=== PATIENT | male | born 1975 | race Caucasian/White ===

== ENCOUNTER → 2016-05-24 | Outpatient (CLI) | payer BC ==
--- NOTE | 2016-05-24 10:05 | XR ---
EXAMINATION TYPE: XR foot complete LT DATE OF EXAM: 05/24/2016 9:45 AM COMPARISON: NONE HISTORY: Pain jumped out of truck TECHNIQUE: 3 view left foot FINDINGS: Plantar and Achilles tendon calcaneal heel spurs are present. No acute fractures are eviden t. No subacute or old fractures are identified. IMPRESSION: 1. Normal left foot
== END | disposition home or self-care (01) ==
LOC: RADXRMAIN 09:20
PROVIDERS: ATTEND Internal Medicine
DX: M79.672 Pain in left foot (principal)

== ENCOUNTER → 2016-06-12 | Outpatient (CLI) | payer BC ==
[2016-06-12 09:30] LABS: CH 27.3; CHCM 33.7; HCT 44.4 % (39.0-53.0); HDW 2.99; HGB 14.7 gm/dL (13.0-17.5); MCH 26.9 pg (25.0-35.0); MCHC 33.1 g/dL (31.0-37.0); MCV 81.4 fL (80.0-100.0); Mean Platelet Volume 8.2; RBC 5.46 m/uL (4.30-5.90); RDW 13.7 % (11.5-15.5); WBC 6.5 k/uL (3.8-10.6)
[2016-06-12 10:39] LABS: ALT 160 U/L (21-72); AST 88 U/L (17-59); Alkaline Phosphatase 84 U/L (38-126); Anion Gap 11 mmol/L; Blood Urea Nitrogen 10 mg/dL (9-20); Calcium 9.2 mg/dL (8.4-10.2); Carbon Dioxide 26 mmol/L (22-30); Chloride 106 mmol/L (98-107); Cholesterol 184 mg/dL (<200); Glucose 96 mg/dL (74-99); HDL Cholesterol 45 mg/dL (40-60); Non-African American GFR(MDRD) >60 (>60 ml/min/1.73 sqM); Potassium 4.6 mmol/L (3.5-5.1); Sodium 143 mmol/L (137-145); Total Bilirubin 0.7 mg/dL (0.2-1.3); Total Protein 7.6 g/dL (6.3-8.2); Triglycerides 201 mg/dL (<150)
== END | disposition home or self-care (01) ==
LOC: LABWHC1 09:01
PROVIDERS: ATTEND Internal Medicine
DX: Z00.01 Encounter for general adult medical examination with abnormal findings (principal); E78.00 Pure hypercholesterolemia, unspecified; K21.9 Gastro-esophageal reflux disease without esophagitis
CPT/HCPCS: 36415; 80053; 80061; 84439; 84443; 85027

== ENCOUNTER → 2016-07-03 | Outpatient (CLI) | payer BC ==
[2016-07-03 11:14] LABS: ALT 152 U/L (21-72); AST 94 U/L (17-59); Alkaline Phosphatase 112 U/L (38-126); Anion Gap 11 mmol/L; Blood Urea Nitrogen 10 mg/dL (9-20); Calcium 9.2 mg/dL (8.4-10.2); Carbon Dioxide 27 mmol/L (22-30); Chloride 105 mmol/L (98-107); Glucose 94 mg/dL (74-99); Non-African American GFR(MDRD) >60 (>60 ml/min/1.73 sqM); Potassium 4.7 mmol/L (3.5-5.1); Sodium 143 mmol/L (137-145); Total Bilirubin 0.6 mg/dL (0.2-1.3); Total Protein 7.7 g/dL (6.3-8.2)
[2016-07-03 11:45] LABS: Hepatitis B Surface Ag Index 0.05
[2016-07-03 12:02] LABS: Hepatitis C Virus IgG Index 0.03
[2016-07-03 12:03] LABS: Hepatitis C Virus IgG Ab Negative (Negative)
[2016-07-03 12:09] LABS: Iron 56 ug/dL (49-181)
[2016-07-03 12:18] LABS: % Iron Saturation 15.6 % (20-50); Total Iron Binding Capacity 358 ug/dL (261-462)
[2016-07-05 12:52] LABS: ANA w/Reflex to Titer NEGATIVE (NEGATIVE)
== END | disposition home or self-care (01) ==
LOC: LABWHC1 10:17
PROVIDERS: ATTEND Internal Medicine Gastroenterology
DX: R79.89 Other specified abnormal findings of blood chemistry (principal)
CPT/HCPCS: 36415; 80053; 82103; 82390; 82728; 83516; 83540; 83550; 84165; 86038; 86803; 87340

== ENCOUNTER → 2016-07-09 | Outpatient (CLI) | payer BC ==
--- NOTE | 2016-07-09 09:18 | US ---
EXAMINATION TYPE: US liver DATE OF EXAM: 07/09/2016 8:31 AM COMPARISON: NONE CLINICAL HISTORY: R94.5 abnormal liver function. abn labs, GB removed x 5 years ago EXAM MEASUREMENTS: Liver Length: 19.6 cm Gallbladder Wall: Surgically absent CHD: 0.5 cm Right Kidney: 12.6 x 6.1 x 6.8 cm suboptimal visualization due to patient body habitus Pancreas: not seen due to overlying bowel gas Liver: enlarged, echogenic Gallbladder: Surgically absent CHD: wnl Right Kidney: wnl IMPRESSION: 1. Hepatic steatosis.
== END ==
LOC: RADUSMAIN 07:45
PROVIDERS: ATTEND Internal Medicine Gastroenterology
DX: K76.0 Fatty (change of) liver, not elsewhere classified (principal)
CPT/HCPCS: 76705

== ENCOUNTER → 2017-07-23 | Outpatient (CLI) | payer BC ==
[2017-07-23 11:07] LABS: Basophils # (A) 0.1 k/uL (0-0.2); Basophils % (A) 1 %; Eosinophils # (A) 0.5 k/uL (0-0.7); Eosinophils % (A) 7 %; HCT 46.7 % (39.0-53.0); HGB 15.2 gm/dL (13.0-17.5); Lymphocytes # (A) 2.2 k/uL (1.0-4.8); Lymphocytes % (A) 30 %; MCH 25.9 pg (25.0-35.0); MCHC 32.6 g/dL (31.0-37.0); MCV 79.3 fL (80.0-100.0); Mean Platelet Volume 7.5; Monocytes # (A) 0.4 k/uL (0-1.0); Monocytes % (A) 6 %; Neutrophils % (A) 54 %; Platelet Count 232 k/uL (150-450); RBC 5.89 m/uL (4.30-5.90); RDW 13.6 % (11.5-15.5); WBC 7.4 k/uL (3.8-10.6)
[2017-07-23 11:30] LABS: ALT 101 U/L (21-72); AST 68 U/L (17-59); Albumin 4.2 g/dL (3.5-5.0); Alkaline Phosphatase 87 U/L (38-126); Anion Gap 11 mmol/L; Blood Urea Nitrogen 10 mg/dL (9-20); Calcium 9.4 mg/dL (8.4-10.2); Carbon Dioxide 28 mmol/L (22-30); Chloride 105 mmol/L (98-107); Cholesterol 203 mg/dL (<200); Glucose 93 mg/dL (74-99); HDL Cholesterol 42 mg/dL (40-60); LDL Cholesterol,Calculated 122 mg/dL (0-99); Potassium 4.8 mmol/L (3.5-5.1); Sodium 144 mmol/L (137-145); Total Bilirubin 0.6 mg/dL (0.2-1.3); Total Protein 7.9 g/dL (6.3-8.2); Triglycerides 194 mg/dL (<150)
[2017-07-23 11:41] LABS: T4, Free (Free Thyroxine) 1.12 ng/dL (0.78-2.19)
== END | disposition home or self-care (01) ==
LOC: LABWHC1 09:45
PROVIDERS: ATTEND Internal Medicine
DX: E78.00 Pure hypercholesterolemia, unspecified (principal); Z13.29 Encounter for screening for other suspected endocrine disorder
CPT/HCPCS: 36415; 80053; 80061; 84439; 84443; 85025

== ENCOUNTER 2018-06-04 21:54 | Emergency (ER) | payer BC, OTHER ==
[2018-06-04] MEDS ORDERED: ONDANSETRON 4 MG/2 ML VIAL IVP STA (22:41)
[2018-06-04] MEDS ORDERED: SODIUM CHLORIDE 0.9% 1,000 ML IV STA (22:41)
[2018-06-04] MEDS ORDERED: MORPHINE SULFATE 4 MG/ML SYRINGE IV STA (22:41)
[2018-06-04 23:43] LABS: Basophils # (A) 0.1 k/uL (0-0.2); Basophils % (A) 1 %; Eosinophils # (A) 0.4 k/uL (0-0.7); Eosinophils % (A) 4 %; HCT 43.4 % (39.0-53.0); HGB 14.7 gm/dL (13.0-17.5); Lymphocytes # (A) 1.8 k/uL (1.0-4.8); Lymphocytes % (A) 18 %; MCH 26.8 pg (25.0-35.0); MCHC 33.7 g/dL (31.0-37.0); MCV 79.5 fL (80.0-100.0); Mean Platelet Volume 7.7; Monocytes # (A) 0.5 k/uL (0-1.0); Monocytes % (A) 5 %; Neutrophils # (A) 7.5 k/uL (1.3-7.7); Neutrophils % (A) 72 %; Platelet Count 191 k/uL (150-450); RBC 5.46 m/uL (4.30-5.90); RDW 14.2 % (11.5-15.5); WBC 10.5 k/uL (3.8-10.6)
[2018-06-05 00:03] LABS: ALT 83 U/L (21-72); AST 53 U/L (17-59); Albumin 4.1 g/dL (3.5-5.0); Alkaline Phosphatase 83 U/L (38-126); Amylase 54 U/L (30-110); Anion Gap 8 mmol/L; Blood Urea Nitrogen 10 mg/dL (9-20); Calcium 9.4 mg/dL (8.4-10.2); Carbon Dioxide 23 mmol/L (22-30); Chloride 108 mmol/L (98-107); Glucose 118 mg/dL (74-99); Lipase 101 U/L (23-300); Sodium 139 mmol/L (137-145); Total Bilirubin 0.4 mg/dL (0.2-1.3); Total Protein 7.4 g/dL (6.3-8.2)
[2018-06-05 00:14] VITALS: RESP 18
[2018-06-05] MEDS ORDERED: DICYCLOMINE 10 MG CAP PO STA (00:27)
[2018-06-05] MEDS ORDERED: MORPHINE SULFATE 4 MG/ML SYRINGE IVP STA (00:27)
--- NOTE | 2018-06-05 00:44 | CT ---
EXAMINATION TYPE: CT abdomen pelvis w con DATE OF EXAM: 06/05/2018 COMPARISON: None HISTORY: Mid to lower abd pain CT DLP: 2670 mGycm Automated exposure control for dose reduction was used. TECHNIQUE: Helical acquisition of images was performed from the lung bases through the pelvis. CONTRAST: Performed without Oral Contrast and with IV Contrast, patient injected with 100 mL of Isovue 300. FINDINGS: Lung bases are clear. There is no pleural effusion. Heart size is normal. There is no pericardial eff usion. Liver shows no focal defect. There are clips from cholecystectomy. Bile ducts are not dilated. Stomac h appears normal. Spleen appears normal. There is no pancreatic mass. There is no adrenal mass. The kidneys have normal size and contour. There is satisfactory contrast op acification. There is no hydronephrosis. Ureters are not dilated. Bladder distends smoothly. There is no inguinal hernia. There is no free fluid in the pelvis. There are some sigmoid diverticula. There is mild fat stranding around the mid sigmoid colon and small amount of fluid in the left paracolic gu tter. There is no sign of a thickened appendix. There is no intestinal wall thickening. There is no mesente velia adenopathy. There is no sign of free air. There is mildly dilated proximal small bowel up to 3 cm . I see no transition point. Distal small bowel has normal size. The lumbar vertebra have normal spacing and alignment. Posterior elements are intact. There is professional housing consultant ior endplate spur formation and disc herniation at L4-5 and L3-4 with some narrowing of the spinal ca nal. IMPRESSION: THERE IS EVIDENCE OF MID SIGMOID DIVERTICULITIS. 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
[2018-06-05] MEDS ORDERED: AMOXIC-POT CLAV 875MG STARTER 2 EACH TABLET PO STA (01:04)
--- NOTE | 2018-06-05 01:06 | ED ---
Abdominal Pain HPI - General Source: patient, family Mode of arrival: wheelchair Limitations: no limitations <Perla Villeda - Last Filed: 06/05/18 02:47> <June Dewitt - Last Filed: 06/06/18 03:15> - General Chief Complaint: Abdominal Pain Stated Complaint: Abd pain Time Seen by Provider: 06/04/18 22:32 - History of Present Illness Initial Comments: 42-year-old male past medical history of diverticulosis presenting today for chief complaint of left lower abdominal pain. Patient states that for the past 1-2 days he did no say dull aching sensation in his left lower abdomen. He states he went to have a bowel movement today noting significant increase in the pain as well as mucus. Patient denies any diarrhea, fever or chills or night sweats. Patient denies any vomiting or nausea, testicular pain or swelling. Patient denies chest pain dyspnea, upper abdominal pain, epigastric pain. Patient denies any melena or hematochezia. Patient denies recent travel. Patient denies recent antibiotic use. Remainder was negative, patient denies any recent shortness of breath, chest pain, back pain, numbness or tingling, dysuria or hematuria, constipation or diarrhea, headaches or visual changes, or any other complaints. Upon arrival patient is well-appearing. Patient does appear uncomfortable. Patient is afebrile with vital signs within except a limits. Elevation of blood pressure noted however improvement upon repeat. (Perla Villeda) - Related Data Home Medications Medication Instructions Recorded Confirmed Ibuprofen [Motrin] 600 mg PO Q8HR PRN 06/04/18 06/04/18 Pantoprazole Sodium [Protonix] 40 mg PO DAILY 06/04/18 06/04/18 Previous Rx's Medication Instructions Recorded Amoxicillin/Potassium Clav 1 tab PO Q8H 7 Days #21 tab 06/05/18 [Augmentin 875-125 Tablet] Allergies Allergy/AdvReac Type Severity Reaction Status Date / Time Sulfa (Sulfonamide Allergy Rapid Verified 06/04/18 23:13 Antibiotics) Heart Rate Review of Systems ROS Other: All systems not noted in ROS Statement are negative. <Perla Villeda - Last Filed: 06/05/18 02:47> ROS Other: All systems not noted in ROS Statement are negative. <June Dewitt - Last Filed: 06/06/18 03:15> ROS Statement: Those systems with pertinent positive or pertinent negative responses have been documented in the HPI. Past Medical History Past Medical History: GERD/Reflux Additional Past Medical History / Comment(s): worked in [place] exposure, diverticulitis, History of Any Multi-Drug Resistant Organisms: None Reported Past Surgical History: Back Surgery, Cholecystectomy Additional Past Surgical History / Comment(s): partial thyroidrectomy (lump ended up benign) Past Anesthesia/Blood Transfusion Reactions: Postoperative Nausea & Vomiting ( PONV) Past Psychological History: No Psychological Hx Reported Smoking Status: Never smoker Past Alcohol Use History: None Reported Past Drug Use History: None Reported - Past Family History Father Family Medical History: Hypertension Mother Additional Family Medical History / Comment(s): DIVERTICULITIS <RonalPerla L - Last Filed: 06/05/18 02:47> General Exam Limitations: no limitations <RonalPerla L - Last Filed: 06/05/18 02:47> <June Dewitt P - Last Filed: 06/06/18 03:15> - General Exam Comments Initial Comments: General: The patient is awake and alert, in no distress, and does not appear acutely ill. Eye: Pupils are equal, round and reactive to light, extra-ocular movements are intact. No nystagmus. There is normal conjunctiva bilaterally. No signs of icterus. Ears, nose, mouth and throat: There are moist mucous membranes and no oral lesions. Neck: The neck is supple, there is no tenderness or JVD. Cardiovascular: There is a regular rate and rhythm. No murmur, rub or gallop is appreciated. Respiratory: Lungs are clear to auscultation, respirations are non-labored, breath sounds are equal. No wheezes, stridor, rales, or rhonchi. Gastrointestinal: No noted diaphoresis, jaundice, pallor, protecting postures or squirming. Symmetrical pigmentation of abdomen without signs of inflammation.. Umbilicus mildline, inverted without swelling. No dilated veins. Abdomen contour obese, no noted abdominal distention. No visible masses. No peristalsis, aortic pulsations, or ventral hernia. Bowel sounds audible in all 4 quadrants, unremarkable. Patient is tender to the patient the left lower abdomen, no rigidity or guarding. Liver edge, not palpable. Spleen edge, right and left kidney not palpable. Superior bladder margin non-tender. Special Testing: Negative [place], Mc[place]ney, Alla, cutaneous hyperesthesia. Iliopsoas and obturator tests negative bilaterally. Negative Heel Jar test. No CVA tenderness. Digital rectal exam deferred. Negative tucker turners or cullens sign Musculoskeletal: Normal ROM, no tenderness. Strength 5/5. Sensation intact. DP and radial pulses equal bilaterally 2+. Neurological: A&O x 3. CN II-XII intact, There are no obvious motor or sensory deficits. Coordination appears grossly intact. Speech is normal. Skin: Skin is warm and dry and no rashes or lesions are noted. Psychiatric: Cooperative, appropriate mood & affect, normal judgment. (Perla Villeda) Vital Signs 06/04/18 06/05/18 06/05/18 22:24 00:13 01:21 Temperature 98.4 F 98.3 F Pulse Rate 91 88 91 Respiratory 20 18 18 Rate Blood Pressure 171/87 138/88 129/90 O2 Sat by Pulse 93 L 96 96 Oximetry Medical Decision Making - Lab Data Result diagrams: 06/04/18 23:00 06/04/18 23:00 <Perla Villeda - Last Filed: 06/05/18 02:47> - Lab Data Result diagrams: 06/04/18 23:00 06/04/18 23:00 <June Dewitt - Last Filed: 06/06/18 03:15> - Medical Decision Making 42-year-old male with history of diverticulosis presenting for left lower abdominal pain that increases with bowel movement. Differential diagnosis included diverticulitis, hernia. No upper abdominal pain. No leukocytosis upon laboratory studies. Laboratory studies revealed no acute abnormalities. Patient is afebrile. CT with contrast revealed sigmoid diverticulitis, no evidence concerning for perforation. No free fluid in the abdomen. Given abdominal exam findings with the left lower abdominal pain with no signs of peritoneal irritation signs I feel are consistent with CT findings. Patient was given IV fluids as well as initial dose of oral antibiotics. Give patient has no significant comorbidities, there is no evidence concerning for complicated diverticulitis on CT. and patient has improvement of pain. I feel patient should be treated and outpatient basis with gastroenterology follow-up. I did consult with the provider Dr. Dewitt and discussed the case, she recommended Augmentin for outpatient antibiotic treatment. Patient is provided information on appropriate diverticulitis diet as well as administration of oral antibiotics. Patient is agreeable plan discharge. Return parameters were discussed at length with patient verbalized understanding. Patient was discharged in stable condition. Well ambulate without difficulty. (Perla Villeda) I was available for consultation in the emergency department. The history and physical exam were done by the midlevel provider. I was consulted for this patient's care. I reviewed the case with the midlevel provider and based on their presentation of the patient, I agree with the assessment, medical decision making and plan of care as documented. (June Dewitt) - Lab Data Lab Results 06/04/18 06/04/18 Range/Units 23:00 23:00 WBC 10.5 (3.8-10.6) k/uL RBC 5.46 (4.30-5.90) m/uL Hgb 14.7 (13.0-17.5) gm/dL Hct 43.4 (39.0-53.0) % MCV 79.5 L (80.0-100.0) fL MCH 26.8 (25.0-35.0) pg MCHC 33.7 (31.0-37.0) g/dL RDW 14.2 (11.5-15.5) % Plt Count 191 (150-450) k/uL Neutrophils % 72 % Lymphocytes % 18 % Monocytes % 5 % Eosinophils % 4 % Basophils % 1 % Neutrophils # 7.5 (1.3-7.7) k/uL Lymphocytes # 1.8 (1.0-4.8) k/uL Monocytes # 0.5 (0-1.0) k/uL Eosinophils # 0.4 (0-0.7) k/uL Basophils # 0.1 (0-0.2) k/uL Sodium 139 (137-145) mmol/L Potassium 4.0 (3.5-5.1) mmol/L Chloride 108 H (98-107) mmol/L Carbon Dioxide 23 (22-30) mmol/L Anion Gap 8 mmol/L BUN 10 (9-20) mg/dL Creatinine 0.67 (0.66-1.25) mg/dL Est GFR (CKD-EPI)AfAm >90 (>60 ml/min/1.73 sqM) Est GFR (CKD-EPI)NonAf >90 (>60 ml/min/1.73 sqM) Glucose 118 H (74-99) mg/dL Calcium 9.4 (8.4-10.2) mg/dL Total Bilirubin 0.4 (0.2-1.3) mg/dL AST 53 (17-59) U/L ALT 83 H (21-72) U/L Alkaline Phosphatase 83 (38-126) U/L Total Protein 7.4 (6.3-8.2) g/dL Albumin 4.1 (3.5-5.0) g/dL Amylase 54 (30-110) U/L Lipase 101 (23-300) U/L Disposition Is patient prescribed a controlled substance at d/c from ED?: No Time of Disposition: 01:06 <Perla Villeda L - Last Filed: 06/05/18 02:47> <June Dewitt P - Last Filed: 06/06/18 03:15> Clinical Impression: Diverticulitis of sigmoid colon Disposition: HOME SELF-CARE Condition: Good Instructions (If sedation given, give patient instructions): Diverticulitis (ED ), Diverticulitis Diet (ED) Additional Instructions: Please use medication as discussed. Please follow-up with gastroenterology in the next 1-2 days, Dr. Canas. Please return to emergency room if the symptoms increase or worsen or for any other concerns, as discussed. Prescriptions: Amoxicillin/Potassium Clav [Augmentin 875-125 Tablet] 1 tab PO Q8H 7 Days #21 tab Referrals: Olivia Langley MD [Primary Care Provider] - 1-2 days Oralia Canas MD [STAFF PHYSICIAN] - 1-2 days
[2018-06-05 01:23] VITALS: BP 129/90; PULSE 91; TEMP 98.3
== END 2018-06-05 01:26 | disposition home or self-care (01) ==
LOC: EC 21:54
DX: K57.32 Diverticulitis of large intestine without perforation or abscess without bleeding (principal); K21.9 Gastro-esophageal reflux disease without esophagitis; Z88.2 Allergy status to sulfonamides; Z79.899 Other long term (current) drug therapy; Z90.49 Acquired absence of other specified parts of digestive tract; Z83.79 Family history of other diseases of the digestive system
CPT/HCPCS: 36415; 80053; 82150; 83690; 85025; 74177; 99284; 96374; 96375; 96376; 96361; J2270 ×2; J2405; Q9967

== ENCOUNTER 2018-08-04 06:34 | Day surgery (SDC) | payer OTHER ==
[2018-08-01 12:37] VITALS: BMI 40.9
[~2018-08-04 06:34] MED LIST: LACTATED RINGERS 1,000 ML IV SCH; LIDOCAINE 1% 20 ML VIAL (10MG/ML) FOR IV START INTRADERMA PRN
[2018-08-04 07:16] VITALS: TEMP 98.1
[2018-08-04] MEDS ORDERED: fentaNYL (PF) 50 MCG/ML 2 ML AMP ONE (07:29)
[2018-08-04] MEDS ORDERED: LIDOCAINE 1% INJ 10MG/ML (20 ML MDV) ONE (07:29)
[2018-08-04] MEDS ORDERED: PROPOFOL 10 MG/ML 20 ML VIAL IV ONE (07:29)
[2018-08-04] MEDS ORDERED: MIDAZOLAM 2 MG/2 ML VIAL ONE (07:29)
--- NOTE | 2018-08-04 07:57 | P.OP ---
Date of Procedure: 08/04/18 Preoperative Diagnosis: History of diverticulitis Postoperative Diagnosis: Inflammatory changes of the sigmoid colon Polyp of sigmoid colon Polyp of descending colon Procedure(s) Performed: Colonoscopy with snare polypectomy and cold forceps biopsy Surgeon: Abril Ferris Pathology: other (Polyp of sigmoid colon, biopsies of sigmoid colon) Condition: stable Disposition: same day Indications for Procedure: 42-year-old male with history of multiple episodes of diverticulitis. Presents today for colonoscopy for evaluation. Patient was explained the risks, benefits and alternatives to the procedure and did provide consent prior to attending the endoscopy suite. Operative Findings: Inflammatory changes of the sigmoid colon were noted. Biopsies were taken Sigmoid colon polyp Descending colon polyp Description of Procedure: The patient was brought into the endoscopy suite and placed in the left lateral decubitus position. Adequate sedation was achieved using conscious sedation. Digital rectal exam was performed and mild internal hemorrhoids were palpated. An endoscope was then placed in the rectum and advanced to the level of the cecum was identified by landmarks, including the appendiceal orifice and the ileocecal valve. The prep was good. The colon scope was then slowly withdrawn, examining for any mucosal abnormalities. The cecum, ascending, transverse, descending and sigmoid colon were visualized adequately. There were inflammatory changes noted in the sigmoid colon. A polyp was also noted in the sigmoid colon. This was noted to be very friable. Polypectomy was performed and the polyp was retrieved. Biopsies of this inflamed area were taken as well. An additional very small polyp was noted in the descending colon. Snare polypectomy was performed, however the very small polyp was unable to be retrieved. Retroflexion was performed in the rectum and internal hemorrhoids were visible. Excess air was removed. The colonoscope was withdrawn and the procedure terminated. The patient was then transferred to postanesthesia care unit in stable condition. Next colonoscopy should be performed in 5 years.
[2018-08-04 08:00] VITALS: RESP 18
[2018-08-04 09:00] VITALS: BP 149/98; PULSE 70
== END 2018-08-04 09:00 | disposition home or self-care (01) ==
LOC: ORWHC2ENDO 06:34
PROVIDERS: ATTEND Surgery
DX: K63.5 Polyp of colon (principal); K63.89 Other specified diseases of intestine; Z87.19 Personal history of other diseases of the digestive system; K64.8 Other hemorrhoids; M19.90 Unspecified osteoarthritis, unspecified site; K21.9 Gastro-esophageal reflux disease without esophagitis; Z79.899 Other long term (current) drug therapy; Z88.2 Allergy status to sulfonamides
CPT/HCPCS: 88305; 45380; 45385; J2250; J2001; J3010; J2704

== ENCOUNTER → 2019-11-08 | Outpatient (CLI) | payer OTHER | END | disposition home or self-care (01) | LOC: LABWHC1 08:12 | PROVIDERS: ATTEND Internal Medicine | DX: Z20.828 Contact with and (suspected) exposure to other viral communicable diseases (principal) ==

== ENCOUNTER → 2020-08-11 | Outpatient (CLI) | payer OTHER ==
[2020-08-11 16:30] LABS: Chol/HDL Ratio 5.23; LDL Cholesterol,Calculated 85.4 mg/dL (0.0-131.0); VLDL Calculation 62.6 mg/dL (5.00-40.00)
== END | disposition home or self-care (01) ==
LOC: LABWHC1 07:30
PROVIDERS: ATTEND Internal Medicine
DX: E78.00 Pure hypercholesterolemia, unspecified (principal)
CPT/HCPCS: 36415; 80061

== ENCOUNTER → 2020-10-02 | Outpatient (CLI) | payer OTHER ==
[2020-10-02 14:57] LABS: Chol/HDL Ratio 4.7
== END | disposition home or self-care (01) ==
LOC: LABWHC1 07:11
PROVIDERS: ATTEND Internal Medicine
DX: E78.00 Pure hypercholesterolemia, unspecified (principal)
CPT/HCPCS: 36415; 80061; 84450; 84460

== ENCOUNTER → 2021-07-04 | Outpatient (CLI) | payer OTHER ==
[2021-07-04 14:08] LABS: ALT 51 U/L (10-49); AST 33 U/L (14-35); African American GFR (CKD) 124.2 (60.0-200.0); Albumin 4.5 g/dL (3.8-4.9); Alkaline Phosphatase 74 U/L (41-126); BUN/Creat Ratio 12.88 Ratio (12.00-20.00); Blood Urea Nitrogen 10.3 mg/dL (9.0-27.0); Calcium 9.3 mg/dL (8.7-10.3); Carbon Dioxide 23.8 mmol/L (20.0-27.5); Chloride 106 mmol/L (96-109); Chol/HDL Ratio 3.74 Ratio; Glucose 105 mg/dL (70-110); LDL Cholesterol,Calculated 53.9 mg/dL (0.0-131.0); Non-African American GFR(CKD) 107.1 (60.0-200.0); Potassium 4.4 mmol/L (3.5-5.5); Sodium 140 mmol/L (135-145); Total Protein 7.5 g/dL (6.2-8.2)
[2021-07-05 00:31] LABS: Basophils # (A) 0.05 X 10*3/uL (0.00-0.10); Basophils % (A) 0.6 %; Eosinophils # (A) 0.37 X 10*3/uL (0.04-0.35); Eosinophils % (A) 4.2 %; HCT 48.3 % (39.6-50.0); HGB 15.3 g/dL (13.0-17.0); Immature Grans, Automated 0.2 %; Lymphocytes # (A) 2.43 X 10*3/uL (0.90-5.00); Lymphocytes % (A) 27.4 %; MCH 25.7 pg (27.0-32.0); MCHC 31.7 g/dL (32.0-37.0); Mean Platelet Volume 10.8 fL (9.5-12.2); Monocytes # (A) 0.69 X 10*3/uL (0.20-1.00); Monocytes % (A) 7.8 %; NRBC Per 100 WBC 0 /100 WBCS (0.0-0.0); Neutrophils % (A) 59.8 %; Platelet Count 256 X 10*3/uL (140-440); RBC 5.96 X 10*6/uL (4.40-5.60); WBC 8.86 X 10*3/uL (4.50-10.00)
== END | disposition home or self-care (01) ==
LOC: LABWHC1 08:14
PROVIDERS: ATTEND Internal Medicine
DX: Z00.01 Encounter for general adult medical examination with abnormal findings (principal); E78.00 Pure hypercholesterolemia, unspecified; R94.5 Abnormal results of liver function studies
CPT/HCPCS: 36415; 80053; 80061; 85025

== ENCOUNTER 2022-08-13 10:26 | Day surgery (SDC) | payer OTHER ==
[2022-08-10 16:17] VITALS: BMI 41.3
[~2022-08-13 10:26] MED LIST changes: -LIDOCAINE 1% 20 ML VIAL (10MG/ML) FOR IV START INTRADERMA PRN
[2022-08-13] MEDS ORDERED: LIDOCAINE 1% (10MG/ML) FOR IV START INTRADERMA ONE (10:55)
[2022-08-13 11:02] VITALS: TEMP 97.5
[2022-08-13] MEDS ORDERED: PROPOFOL 10 MG/ML 20 ML VIAL IV ONE (11:06)
--- NOTE | 2022-08-13 11:25 | P.PCN ---
Date of Procedure: 08/13/22 Procedure(s) Performed: BRIEF HISTORY: Patient is a 46-year-old pleasant male scheduled for an elective colonoscopy as a part of intermittent lower abdominal pain, rectal bleeding and chronic diarrhea for the last 6 months duration. PROCEDURE PERFORMED: Colonoscopy with biopsy . PREOPERATIVE DIAGNOSIS: Chronic diarrhea/intermittent lower abdominal pain and rectal bleeding of 6 months duration. IV sedation per Anesthesia. PROCEDURE: After informed consent was obtained, the patient, was brought into the endoscopy unit. IV sedation was administered by Anesthesia under continuous monitoring. Digital rectal examination was normal. Initially the Olympus CF-160 flexible video colonoscope was then inserted in the rectum, gradually advanced into the cecum without any difficulty. Careful examination was performed as the scope was gradually being withdrawn. Ileocecal valve and the appendiceal orifice were visualized and appeared normal. Prep was excellent. Mucosa of the cecum, ascending colon, transverse colon, descending colon, appeared normal. There was segmental colitis involving the sigmoid colon extending from 25-35 cm from the anal verge with mild mucosal erythema friability and biopsies were done from this area. There were multiple diverticular orifices noted in the vicinity. Al so there was a 5 mm polyp noted in the sigmoid colon that was removed by snare polypectomy. In the rectum appeared normal. Retroflexion was performed in the rectum and no lesions were seen. The patient tolerated the procedure well. IMPRESSION: Segmental sigmoid colitis mucosal erythema and friability noted in the sigmoid colon and descending from 25-35 cm from the anal vergepossibly related to diverticular related colitis, status post multiple biopsies Scattered sigmoid diverticulosis 5 mm; polyp status post polypectomy Rest of the colon appeared RECOMMENDATIONS: Findings of this examination were discussed with the patient as well as his family. He was advised to follow with the biopsy results. He will continue with a high-fiber diet and fiber supplements a regular basis. He'll be seen in office in 3-4 weeks. .
[2022-08-13 11:45] VITALS: BP 134/74; PULSE 80; RESP 16
== END 2022-08-13 12:30 | disposition home or self-care (01) ==
LOC: ORWHC2ENDO 10:26
PROVIDERS: ATTEND Internal Medicine Gastroenterology
DX: K63.5 Polyp of colon (principal); K52.9 Noninfective gastroenteritis and colitis, unspecified; K57.30 Diverticulosis of large intestine without perforation or abscess without bleeding; E78.5 Hyperlipidemia, unspecified; K21.9 Gastro-esophageal reflux disease without esophagitis; Z88.2 Allergy status to sulfonamides; Z79.899 Other long term (current) drug therapy
CPT/HCPCS: 88305; 45385; 45380; J2704

== ENCOUNTER → 2022-12-15 | Outpatient (CLI) | payer OTHER ==
--- NOTE | 2022-12-16 08:25 | CT ---
EXAMINATION TYPE: CT abdomen pelvis w con DATE OF EXAM: 12/15/2022 COMPARISON: 11/25/2022 HISTORY: diverticulitis f/u. CT DLP: 2788.90 mGycm CONTRAST: CT scan of the abdomen and pelvis is performed with Oral Contrast and with IV Contrast, patient injec levar with 100 mL of Isovue 300. FINDINGS: LUNG BASES-: No visible nodule. No infiltrate. LIVER/GB: The gallbladder is surgically absent. No space occupying hepatic lesion. Biliary tree is of normal caliber. PANCREAS: No inflammation. No distinct mass. SPLEEN: No splenic enlargement. No lesion seen. ADRENALS: No nodule. No thickening. KIDNEYS/BLADDER: No hydronephrosis. No nephrolithiasis. No distinct renal mass. Urinary bladder g rossly unremarkable. BOWEL: Normal appendix. Improved but persistent features of diverticulitis at the descending colonic/ sigmoid colonic junction. There continues to be mild pericolonic stranding. There is also a mildly pr ominent lymph node identified adjacent to the affected colon measuring 1 cm. No free air or abscess s een. GENITAL ORGANS: No gross abnormality. LYMPH NODES: No greater than 1cm abdominal or pelvic lymph nodes are appreciated. AORTA: No significant abnormality. OSSEOUS STRUCTURES: No significant abnormality is seen. OTHER: No significant additional abnormality is seen. IMPRESSION: 1. Persistent but improving features of the colonic diverticulitis as discussed above. As noted there are one or 2 mildly prominent lymph nodes adjacent to the colon which could be reactive in nature. N eoplasm is not excluded and direct visualization upon continued improvement is recommended.
== END | disposition home or self-care (01) ==
LOC: RADCTMAIN 15:23
PROVIDERS: ATTEND Internal Medicine Infectious Disease
DX: K57.32 Diverticulitis of large intestine without perforation or abscess without bleeding (principal); R10.84 Generalized abdominal pain
CPT/HCPCS: 74177; Q9967

== ENCOUNTER 2023-03-23 10:27 | Day surgery (SDC) | payer OTHER ==
[2023-03-18 16:01] VITALS: BMI 40.0
--- NOTE | 2023-03-23 08:46 | P.GSHP ---
History of Present Illness H&P Date: 03/23/23 CHIEF COMPLAINT: Colon screen HISTORY OF PRESENT ILLNESS: The patient is a 47-year-old male who presents for colon screen. Lower endoscopy was offered for further evaluation and management. PAST MEDICAL HISTORY: Please see list. PAST SURGICAL HISTORY: Please see list. MEDICATIONS: Please see list. ALLERGIES: Please see list. SOCIAL HISTORY: No illicit drug use FAMILY HISTORY: No reports of Crohn disease or ulcerative colitis. REVIEW OF ORGAN SYSTEMS: CONSTITUTIONAL: No reports of fevers or chills. PHYSICAL EXAM: VITAL SIGNS: Stable GENERAL: Well-developed pleasant in no acute distress. HEENT: No scleral icterus. Extraocular movements grossly intact. Moist buccal mucosa. NECK: Supple without lymphadenopathy. CHEST: Unlabored respirations. Equal bilateral excursions. CARDIOVASCULAR: Regular rate and rhythm. Distal 2+ pulses. ABDOMEN: Soft, nontender, nondistended. MUSCULOSKELETAL: No clubbing, cyanosis, or edema. ASSESSMENT: 1. Colon screen. PLAN: 1. Recommend proceeding with a lower endoscopy Past Medical History Past Medical History: GERD/Reflux, Osteoarthritis (OA) Additional Past Medical History / Comment(s): Works in construction, Asbestos exposure, Diverticulitis History of Any Multi-Drug Resistant Organisms: None Reported Past Surgical History: Back Surgery, Cholecystectomy Additional Past Surgical History / Comment(s): partial thyroidrectomy (lump ended up benign)colonoscopy Past Anesthesia/Blood Transfusion Reactions: No Reported Reaction, Postoperative Nausea & Vomiting (PONV) Additional Past Anesthesia/Blood Transfusion Reaction / Comment(s): no blood transfusion Smoking Status: Never smoker - Past Family History Father Family Medical History: Hypertension Mother Additional Family Medical History / Comment(s): DIVERTICULITIS Medications and Allergies Home Medications Medication Instructions Recorded Confirmed Type Pantoprazole Sodium [Protonix] 40 mg PO DAILY 06/04/18 03/18/23 History [place]-3/Dha/Epa/Fish Oil [Fish Oil 1 cap PO DAILY 08/10/22 03/18/23 History 1,000 mg Softgel] Rosuvastatin [Crestor] 10 mg PO DAILY 08/10/22 03/18/23 History Ibuprofen [Motrin] 600 mg PO Q8HR PRN #15 tab 11/30/22 03/18/23 Rx gemfibroziL [Lopid] 600 mg PO AC-BID 03/18/23 03/18/23 History Allergies Allergy/AdvReac Type Severity Reaction Status Date / Time morphine Allergy Chest Pain Verified 03/18/23 15:36 Sulfa (Sulfonamide Allergy Rapid Verified 03/18/23 15:35 Antibiotics) Heart Rate, Rash, Increased temperatures sulfamethoxazole Allergy Rapid Verified 03/18/23 15:35 [From Bactrim] Heart Rate, Rash, Increased temperatures trimethoprim [From Bactrim] Allergy Rapid Verified 03/18/23 15:35 Heart Rate, Rash, Increased temperatures
[~2023-03-23 10:27] MED LIST changes: +LIDOCAINE 1% (10MG/ML) FOR IV START INTRADERMA PRN
[2023-03-23 11:03] VITALS: RESP 16; TEMP 97.4
[2023-03-23] MEDS ORDERED: LIDOCAINE 1% INJ 10MG/ML (20 ML MDV) ONE (11:44)
[2023-03-23] MEDS ORDERED: PROPOFOL 10 MG/ML 20 ML VIAL IV ONE (11:44)
--- NOTE | 2023-03-23 12:13 | P.PCN ---
Date of Procedure: 03/23/23 Description of Procedure: PREOPERATIVE DIAGNOSIS: Colonoscopy screening. Diverticulitis Left lower quadrant abdominal pain POSTOPERATIVE DIAGNOSIS: Colonoscopy screening. Sigmoid diverticulitis OPERATION: Colonoscopy to the cecum, ileocecal valve and appendiceal orifice. SURGEON: Kendra Corrales MD. ANESTHESIA: MAC. INDICATIONS: The patient is a 47-year-old male who presents left lower quadrant abdominal pain, recurrent diverticulitis and screening. Benefits and risks were described and informed consent was obtained. DESCRIPTION OF PROCEDURE: The patient had undergone Sutab prep. The patient had been brought into the operating room and laid in the left lateral decubitus position. After adequate intravenous sedation, the rectum was examined with 2% lidocaine jelly. No external hemorrhoids were encountered. The rectal tone was within normal limits. No lesions were palpated in the rectal vault. An Olympus colonoscope was advanced until the cecum, ileocecal valve and appendiceal orifice were clearly viewed. The prep was excellent. Scattered diverticulosis was encountered. Sigmoid diverticulitis active identified. No colonic polyps were found. Retroflexion of the scope demonstrated grade 1 internal hemorrhoids without active bleeding or inflammation. The colon was desufflated. The patient had tolerated the procedure well. Withdrawal time was over 6 minutes. FINDINGS: Aronchick preparation quality scale 1+(1-5) Internal hemorrhoids, grade 1 No external prolapsed hemorrhoids. No arteriovenous malformations. No adenomatous polyps. Mild active sigmoid diverticulitis RECOMMENDATIONS: Recommend: Resection due to persistent chronic diverticulitis Plan - Discharge Summary Discharge Rx Participant: Yes New Discharge Prescriptions: Continue Pantoprazole Sodium [Protonix] 40 mg PO DAILY [place]-3/Dha/Epa/Fish Oil [Fish Oil 1,000 mg Softgel] 1 cap PO DAILY Ibuprofen [Motrin] 600 mg PO Q8HR PRN #15 tab PRN Reason: Pain Rosuvastatin [Crestor] 10 mg PO DAILY gemfibroziL [Lopid] 600 mg PO AC-BID Discharge Medication List Pantoprazole Sodium [Protonix] 40 mg PO DAILY 06/04/18 [History] [place]-3/Dha/Epa/Fish Oil [Fish Oil 1,000 mg Softgel] 1 cap PO DAILY 08/10/22 [ History] Rosuvastatin [Crestor] 10 mg PO DAILY 08/10/22 [History] Ibuprofen [Motrin] 600 mg PO Q8HR PRN #15 tab 11/30/22 [Rx] gemfibroziL [Lopid] 600 mg PO AC-BID 03/18/23 [History] Follow up Appointment(s)/Referral(s): Kendra Corrales MD [STAFF PHYSICIAN] - 03/29/23 2:45 pm Patient Instructions/Handouts: Diverticulitis (DC), Diverticulitis Diet (DC) Discharge Disposition: HOME SELF-CARE
[2023-03-23 12:25] VITALS: BP 123/75; PULSE 75
== END 2023-03-23 12:38 | disposition home or self-care (01) ==
LOC: ORWHC2ENDO 10:27
PROVIDERS: ATTEND Surgery Plastic and Reconstructive Surgery
DX: Z12.11 Encounter for screening for malignant neoplasm of colon (principal); K57.32 Diverticulitis of large intestine without perforation or abscess without bleeding; K64.0 First degree hemorrhoids; K21.9 Gastro-esophageal reflux disease without esophagitis; M19.90 Unspecified osteoarthritis, unspecified site; Z83.79 Family history of other diseases of the digestive system; Z90.49 Acquired absence of other specified parts of digestive tract; Z82.49 Family history of ischemic heart disease and other diseases of the circulatory system; Z79.1 Long term (current) use of non-steroidal anti-inflammatories (NSAID); Z79.899 Other long term (current) drug therapy; Z98.890 Other specified postprocedural states; Z88.2 Allergy status to sulfonamides; Z88.5 Allergy status to narcotic agent
CPT/HCPCS: 45378; J2001; J2704

== ENCOUNTER → 2023-04-29 | Outpatient (CLI) | payer OTHER ==
[2023-04-29 15:56] LABS: HCT 49.9 % (39.6-50.0); HGB 15.6 g/dL (13.0-17.0); MCH 25.9 pg (27.0-32.0); MCHC 31.3 g/dL (32.0-37.0); MCV 82.8 FL (80.0-97.0); NRBC Per 100 WBC 0 X 10*3/uL (0.00-0.01); Platelet Count 241 X 10*3/uL (140-440); RBC 6.03 X 10*6/uL (4.40-5.60); WBC 8.16 X 10*3/uL (4.50-10.00)
[2023-04-29 16:14] LABS: Carbon Dioxide 25.9 mmol/L (21.6-31.8); Chloride 104 mmol/L (96-109); Potassium 4.5 mmol/L (3.5-5.5); Sodium 140 mmol/L (135-145)
== END | disposition home or self-care (01) ==
LOC: LABPAT 11:39
PROVIDERS: ATTEND Surgery Plastic and Reconstructive Surgery
DX: Z01.818 Encounter for other preprocedural examination (principal)
CPT/HCPCS: 80051; 82565; 84520; 85027; 86850; 86900; 86901

== ENCOUNTER → 2023-05-05 | Day surgery (SDC) | payer OTHER ==
[~2023-05-05] MED LIST changes: +ACETAMINOPHEN TAB 500 MG TAB PO PRN; +ALVIMOPAN 12 MG CAPSULE PO PRN; +Antibiotics per Pharmacy 1 EACH MISC MISCELLANE PRN; +HEPARIN SODIUM,PORCINE 5,000 UNIT/ML 1 ML VIAL SQ PRN; +LACTATED RINGERS 1,000 ML IV ONE; +MELOXICAM 7.5 MG TAB PO PRN; +NEOMYCIN 500 MG TAB PO SCH; +PEG 3350 (420 GM/BTL) + LYTES 4,000 ML BOTTLE PO ONE; +PROPOFOL 10 MG/ML 20 ML VIAL IV ONE; +SODIUM CHLORIDE 0.9% 2,000 ML IV ONE; +TEMAZEPAM 15 MG CAP PO ONE; +ceFAZolin 3 GM in SODIUM CHLORIDE 0.9% 100 ML IVPB PRN; +metroNIDAZOLE 500 MG TAB PO SCH; +metroNIDAZOLE-NS PMX 500 MG in SALINE 1 100ML.BAG IVPB PRN
--- NOTE | 2023-05-05 07:23 | P.GSHP ---
History of Present Illness H&P Date: 05/05/23 CHIEF COMPLAINT: Sigmoid diverticulitis HISTORY OF PRESENT ILLNESS: The patient is a 47-year-old male who presents with change in bowel habits including intermittent large bowel obstruction for over 6 months. He reports intermittent gas bloat including left lower quadrant abdominal pain with multiple attacks. He presents for surgical options, sigmoid colectomy. PAST MEDICAL HISTORY: Please see list. PAST SURGICAL HISTORY: Please see list. MEDICATIONS: Please see list. ALLERGIES: Please see list. SOCIAL HISTORY: No illicit drug use FAMILY HISTORY: No reports of Crohn disease or ulcerative colitis. REVIEW OF ORGAN SYSTEMS: CONSTITUTIONAL: Denies any fever or chills. HEENT: Denies any trouble with vision or nosebleeds. No difficulty swallowing. LYMPHATIC: The patient denies any lumps and bumps around the neck. ENDOCRINE: Denies any thyroid disorders. Has blood sugar glucose intolerance. RESPIRATORY: Denies pneumonia. Denies any troubles with breathing or dyspnea on exertion. CARDIOVASCULAR: Denies any chest pain, palpitations, or recent heart attacks. GASTROINTESTINAL: Has chronic diverticulitis. GENITOURINARY: Has increased urinary frequency. MUSCULOSKELETAL: Has back pain, stiffness, joint arthritis. NEUROLOGIC: Denies any numbness or tingling along the distal extremities. No seizure disorders or headaches. PSYCHIATRIC: Denies depression or suidical ideation. HEMATOLOGIC: Denies any abnormal bleeding or bruising. PHYSICAL EXAM: VITAL SIGNS: Stable GENERAL: Well-developed pleasant in no acute distress. HEENT: No scleral icterus. Extraocular movements grossly intact. Moist buccal mucosa. NECK: Supple without lymphadenopathy. CHEST: Unlabored respirations. Equal bilateral excursions. CARDIOVASCULAR: Regular rate and rhythm. Distal 2+ pulses. ABDOMEN: Soft, nontender, nondistended. MUSCULOSKELETAL: No clubbing, cyanosis, or edema. NERUO: Cranial nerves 2-12 grossly intact. PSYCH: Alert and oriented to person place and time. ASSESSMENT: 1. Sigmoid diverticulosis with intermittent bowel obstruction PLAN: 1. Benefits and risks of surgical robotic sigmoid resection was reviewed in detail. Robotic-assisted approach was also described. 2. Enhanced colon recovery program. 3. DVT prophylaxis. 4. Antibiotic prophylaxis. 5. Inpatient hospitalization greater than 2 nights. 6. Recommend colonoscopy for tattooing and pre-surgical management Past Medical History Past Medical History: GERD/Reflux, Osteoarthritis (OA) Additional Past Medical History / Comment(s): Works in construction, Asbestos exposure, Diverticulitis History of Any Multi-Drug Resistant Organisms: None Reported Past Surgical History: Back Surgery, Cholecystectomy Additional Past Surgical History / Comment(s): partial thyroidrectomy (lump ended up benign)colonoscopy Past Anesthesia/Blood Transfusion Reactions: No Reported Reaction, Postoperative Nausea & Vomiting (PONV) Additional Past Anesthesia/Blood Transfusion Reaction / Comment(s): no blood transfusion Past Psychological History: No Psychological Hx Reported Additional Psychological History / Comment(s): Currently works for [employer]. Smoking Status: Never smoker Past Alcohol Use History: Occasional Past Drug Use History: None Reported - Past Family History Father Family Medical History: Hypertension Mother Additional Family Medical History / Comment(s): DIVERTICULITIS Medications and Allergies Home Medications Medication Instructions Recorded Confirmed Type Pantoprazole Sodium [Protonix] 40 mg PO QAM 06/04/18 04/29/23 History Billings-3/Dha/Epa/Fish Oil [Fish Oil 1 cap PO DAILY 08/10/22 04/29/23 History 1,000 mg Softgel] Rosuvastatin [Crestor] 10 mg PO DAILY 08/10/22 04/29/23 History Ibuprofen [Motrin] 600 mg PO Q8HR PRN #15 tab 11/30/22 04/29/23 Rx Allergies Allergy/AdvReac Type Severity Reaction Status Date / Time morphine Allergy Chest Pain Verified 04/29/23 10:24 Sulfa (Sulfonamide Allergy Rapid Verified 04/29/23 10:24 Antibiotics) Heart Rate, Rash, Increased temperatures sulfamethoxazole Allergy Rapid Verified 04/29/23 10:24 [From Bactrim] Heart Rate, Rash, Increased temperatures trimethoprim [From Bactrim] Allergy Rapid Verified 04/29/23 10:24 Heart Rate, Rash, Increased temperatures
[2023-05-05 11:02] VITALS: TEMP 97.3
[2023-05-05 11:26] LABS: Basophils % (A) 0 %; Eosinophils # (A) 0.4 k/uL (0-0.7); Eosinophils % (A) 5 %; HCT 46.4 % (39.0-53.0); HGB 15.3 gm/dL (13.0-17.5); Lymphocytes # (A) 2.3 k/uL (1.0-4.8); Lymphocytes % (A) 29 %; MCH 26.5 pg (25.0-35.0); MCHC 33.1 g/dL (31.0-37.0); MCV 80.1 fL (80.0-100.0); Mean Platelet Volume 8.2; Monocytes # (A) 0.5 k/uL (0-1.0); Monocytes % (A) 6 %; Neutrophils # (A) 4.7 k/uL (1.3-7.7); Neutrophils % (A) 59 %; Platelet Count 230 k/uL (150-450); RBC 5.79 m/uL (4.30-5.90)
[2023-05-05 11:39] LABS: ALT 45 U/L (4-49); AST 41 U/L (17-59); African American GFR (CKD) >90 (>60 ml/min/1.73 sqM); Albumin 4.6 g/dL (3.5-5.0); Alkaline Phosphatase 74 U/L (38-126); Anion Gap 12 mmol/L; Blood Urea Nitrogen 10 mg/dL (9-20); Calcium 9.3 mg/dL (8.4-10.2); Carbon Dioxide 26 mmol/L (22-30); Chloride 102 mmol/L (98-107); Glucose 90 mg/dL (74-99); Non-African American GFR(CKD) >90 (>60 ml/min/1.73 sqM); Potassium 4.2 mmol/L (3.5-5.1); Sodium 140 mmol/L (137-145); Total Bilirubin 0.8 mg/dL (0.2-1.3); Total Protein 8.4 g/dL (6.3-8.2)
--- NOTE | 2023-05-05 12:28 | P.PCN ---
Date of Procedure: 05/05/23 Description of Procedure: PREOPERATIVE DIAGNOSIS: Recurrent diverticulitis with perforation POSTOPERATIVE DIAGNOSIS: Recurrent sigmoid diverticulitis OPERATION: Colonoscopy to the cecum, ileocecal valve and appendiceal orifice. Colonoscopy with injection of Dorcas ink, 4 mL SURGEON: Kendra Corrales MD. ANESTHESIA: MAC. INDICATIONS: The patient is a 58-year-old female who presents for colonoscopy screening. Benefits and risks were described and informed consent was obtained. DESCRIPTION OF PROCEDURE: The patient had undergone Sutab prep. The patient had been brought into the operating room and laid in the left lateral decubitus position. After adequate intravenous sedation, the rectum was examined with 2% lidocaine jelly. No external hemorrhoids were encountered. The rectal tone was within normal limits. No lesions were palpated in the rectal vault. An Olympus colonoscope was advanced until the cecum, ileocecal valve and appendiceal orifice were clearly viewed. The prep was fair. Scattered diverticulosis was encountered. No colonic polyps were found. Acute diverticulitis was identified and tattooed with Dorcas ink, 4 mL per Retroflexion of the scope demonstrated grade 1 internal hemorrhoids without active bleeding or inflammation. The colon was desufflated. The patient had tolerated the procedure well. Withdrawal time was over 6 minutes. FINDINGS: Aronchick preparation quality scale 2+(1-5) Internal hemorrhoids, grade 1 No external prolapsed hemorrhoids. No arteriovenous malformations. No adenomatous polyps. Acute diverticulitis sigmoid colon, 25-30 cm from anal verge with Dorcas ink RECOMMENDATIONS: Recommend sigmoid colectomy, low anterior resection for recurrent diverticulitis, inpatient admission advised
[2023-05-05 12:39] VITALS: RESP 16
[2023-05-05 13:50] VITALS: BP 132/86; PULSE 70
== END ==
LOC: ORWHC2ENDO 10:23
PROVIDERS: ATTEND Surgery Plastic and Reconstructive Surgery
DX: K57.20 Diverticulitis of large intestine with perforation and abscess without bleeding (principal); K56.609 Unspecified intestinal obstruction, unspecified as to partial versus complete obstruction; K21.9 Gastro-esophageal reflux disease without esophagitis; M19.90 Unspecified osteoarthritis, unspecified site; F10.90 Alcohol use, unspecified, uncomplicated; Z90.49 Acquired absence of other specified parts of digestive tract; Z98.890 Other specified postprocedural states; Z82.49 Family history of ischemic heart disease and other diseases of the circulatory system; Z83.79 Family history of other diseases of the digestive system; Z79.899 Other long term (current) drug therapy; Z88.2 Allergy status to sulfonamides; Z88.1 Allergy status to other antibiotic agents
CPT/HCPCS: 80053; 85025; 44404; 45381; J2704

== ENCOUNTER 2023-05-06 07:30 | Inpatient (IN) | payer OTHER ==
--- NOTE | 2023-05-06 06:49 | P.GSHP ---
History of Present Illness H&P Date: 05/06/23 CHIEF COMPLAINT: Sigmoid diverticulitis HISTORY OF PRESENT ILLNESS: The patient is a 47-year-old male who presents with recurrent diverticulitis in the last 6 months unrelieved with antibiotics. He reports intermittent gas bloat including left lower quadrant abdominal pain with multiple attacks. He had lower endoscopy with active diverticulitis. He presents for surgical options, sigmoid colectomy. PAST MEDICAL HISTORY: Please see list. PAST SURGICAL HISTORY: Please see list. MEDICATIONS: Please see list. ALLERGIES: Please see list. SOCIAL HISTORY: No illicit drug use FAMILY HISTORY: No reports of Crohn disease or ulcerative colitis. REVIEW OF ORGAN SYSTEMS: CONSTITUTIONAL: Denies any fever or chills. HEENT: Denies any trouble with vision or nosebleeds. No difficulty swallowing. LYMPHATIC: The patient denies any lumps and bumps around the neck. ENDOCRINE: Denies any thyroid disorders. Has blood sugar glucose intolerance. RESPIRATORY: Denies pneumonia. Denies any troubles with breathing or dyspnea on exertion. CARDIOVASCULAR: Denies any chest pain, palpitations, or recent heart attacks. GASTROINTESTINAL: Has chronic diverticulitis. GENITOURINARY: No blood in urine. MUSCULOSKELETAL: Has back pain, stiffness, joint arthritis. NEUROLOGIC: Denies any numbness or tingling along the distal extremities. No seizure disorders or headaches. PSYCHIATRIC: Denies depression or suidical ideation. HEMATOLOGIC: Denies any abnormal bleeding or bruising. PHYSICAL EXAM: VITAL SIGNS: Stable GENERAL: Well-developed pleasant in no acute distress. HEENT: No scleral icterus. Extraocular movements grossly intact. Moist buccal mucosa. NECK: Supple without lymphadenopathy. CHEST: Unlabored respirations. Equal bilateral excursions. CARDIOVASCULAR: Regular rate and rhythm. Distal 2+ pulses. ABDOMEN: Soft. No peritonitis. MUSCULOSKELETAL: No clubbing, cyanosis, or edema. NERUO: Cranial nerves 2-12 grossly intact. PSYCH: Alert and oriented to person place and time. ASSESSMENT: 1. Sigmoid diverticulitis, recurrent 2. Morbid obesity due to excess calories, BMI 40.0 PLAN: 1. Benefits and risks of surgical robotic sigmoid resection, low anterior resection was reviewed in detail. Robotic-assisted approach was also described. 2. Enhanced colon recovery program. 3. DVT prophylaxis. 4. Antibiotic prophylaxis. 5. Inpatient hospitalization greater than 2 nights. 6. Perioperative diet described Past Medical History Past Medical History: GERD/Reflux, Hyperlipidemia, Osteoarthritis (OA) Additional Past Medical History / Comment(s): Works in construction, Asbestos exposure, Diverticulitis History of Any Multi-Drug Resistant Organisms: None Reported Past Surgical History: Back Surgery, Cholecystectomy Additional Past Surgical History / Comment(s): partial thyroidrectomy (lump ended up benign)colonoscopy Past Anesthesia/Blood Transfusion Reactions: No Reported Reaction, Postoperative Nausea & Vomiting (PONV) Additional Past Anesthesia/Blood Transfusion Reaction / Comment(s): no blood transfusion Past Psychological History: No Psychological Hx Reported Additional Psychological History / Comment(s): Currently works for [employer]. Smoking Status: Never smoker Past Alcohol Use History: Occasional Past Drug Use History: None Reported - Past Family History Father Family Medical History: Hypertension Mother Additional Family Medical History / Comment(s): DIVERTICULITIS Medications and Allergies Home Medications Medication Instructions Recorded Confirmed Type RX: Pantoprazole Sodium [Protonix] 40 mg PO QAM 06/04/18 05/05/23 History RX: Guys-3/Dha/Epa/Fish Oil [Fish 1 cap PO DAILY 08/10/22 04/29/23 History Oil 1,000 mg Softgel] RX: Rosuvastatin [Crestor] 10 mg PO DAILY 08/10/22 05/05/23 History RX: Ibuprofen [Motrin] 600 mg PO Q8HR PRN #15 tab 11/30/22 04/29/23 Rx Acetaminophen Tab [Tylenol] 650 mg PO Q6H 05/05/23 05/05/23 History Allergies Allergy/AdvReac Type Severity Reaction Status Date / Time morphine Allergy Chest Pain Verified 05/05/23 10:51 Sulfa (Sulfonamide Allergy Rapid Verified 05/05/23 10:51 Antibiotics) Heart Rate, Rash, Increased temperatures sulfamethoxazole Allergy Rapid Verified 05/05/23 10:51 [From Bactrim] Heart Rate, Rash, Increased temperatures trimethoprim [From Bactrim] Allergy Rapid Verified 05/05/23 10:51 Heart Rate, Rash, Increased temperatures
[~2023-05-06 07:30] MED LIST changes: -ACETAMINOPHEN TAB 500 MG TAB PO PRN; -Antibiotics per Pharmacy 1 EACH MISC MISCELLANE PRN; -LACTATED RINGERS 1,000 ML IV ONE; -LACTATED RINGERS 1,000 ML IV SCH; -LIDOCAINE 1% (10MG/ML) FOR IV START INTRADERMA PRN; -MELOXICAM 7.5 MG TAB PO PRN; -NEOMYCIN 500 MG TAB PO SCH; +ONDANSETRON 4 MG/2 ML VIAL IVP STA; -PEG 3350 (420 GM/BTL) + LYTES 4,000 ML BOTTLE PO ONE; -PROPOFOL 10 MG/ML 20 ML VIAL IV ONE; -SODIUM CHLORIDE 0.9% 2,000 ML IV ONE; -TEMAZEPAM 15 MG CAP PO ONE; -metroNIDAZOLE 500 MG TAB PO SCH; -metroNIDAZOLE-NS PMX 500 MG in SALINE 1 100ML.BAG IVPB PRN; +metroNIDAZOLE-NS PMX 500 MG in SALINE 100 100ML.BAG IVPB PRN
[2023-05-06] MEDS ORDERED: fentaNYL (PF) 50 MCG/ML 2 ML AMP IV PRN (07:40)
[2023-05-06] MEDS ORDERED: MIDAZOLAM 2 MG/2 ML VIAL IV PRN (07:40)
[2023-05-06] MEDS ORDERED: SCOPOLAMINE 1 MG/72 HR PATCH TRANSDERM STA (07:40)
[2023-05-06] MEDS: TAMSULOSIN 0.4 MG CAP.ER.24H PO STA ×2 (12:29→22:10)
[2023-05-06] MEDS: LACTATED RINGERS 1,000 ML IV SCH (12:35)
[2023-05-06 12:41] LABS: Basophils % (A) 0 %; Eosinophils # (A) 0.3 k/uL (0-0.7); Eosinophils % (A) 4 %; HCT 43.1 % (39.0-53.0); HGB 14.7 gm/dL (13.0-17.5); Lymphocytes # (A) 2.3 k/uL (1.0-4.8); Lymphocytes % (A) 24 %; MCHC 34.2 g/dL (31.0-37.0); MCV 79.1 fL (80.0-100.0); Mean Platelet Volume 7.7; Monocytes # (A) 0.6 k/uL (0-1.0); Monocytes % (A) 6 %; Neutrophils # (A) 6.1 k/uL (1.3-7.7); Neutrophils % (A) 64 %; Platelet Count 223 k/uL (150-450); RBC 5.44 m/uL (4.30-5.90); WBC 9.5 k/uL (3.8-10.6)
[2023-05-06 13:08] LABS: ALT 38 U/L (4-49); AST 37 U/L (17-59); African American GFR (CKD) >90 (>60 ml/min/1.73 sqM); Albumin 4.2 g/dL (3.5-5.0); Alkaline Phosphatase 71 U/L (38-126); Anion Gap 14 mmol/L; Blood Urea Nitrogen 7 mg/dL (9-20); Calcium 8.9 mg/dL (8.4-10.2); Carbon Dioxide 19 mmol/L (22-30); Chloride 105 mmol/L (98-107); Glucose 95 mg/dL (74-99); Non-African American GFR(CKD) >90 (>60 ml/min/1.73 sqM); Potassium 3.9 mmol/L (3.5-5.1); Sodium 138 mmol/L (137-145); Total Bilirubin 0.8 mg/dL (0.2-1.3); Total Protein 7.7 g/dL (6.3-8.2)
[2023-05-06] MEDS ORDERED: MIDAZOLAM 2 MG/2 ML VIAL IVP ONE (13:38)
[2023-05-06] MEDS ORDERED: fentaNYL (PF) 50 MCG/ML 2 ML AMP IVP ONE ×2 (13:50→14:00)
[2023-05-06] MEDS ORDERED: NALOXONE 0.4 MG/ML 1 ML VIAL IV PRN (14:13)
[2023-05-06] MEDS ORDERED: ROPIVACAINE 250 MG, HYDROMORPHONE (PF) 5 MG in SODIUM CHLORIDE 0.9% 200 ML EPIDURAL PRN (14:13)
[2023-05-06] MEDS ORDERED: DEXAMETHASONE SOD PHOSPHATE 4 MG/ML 1 ML VIAL IVP ONE (14:22)
--- NOTE | 2023-05-06 14:35 | P.ANPRN ---
Procedure Note - Anesthesia - Epidural/Spinal Epidural Continuous Time Out Performed: Yes Date of Procedure: 05/06/23 Procedure Start Time: 13:38 Procedure Stop Time: 13:50 Location of Patient: PreOp Indication: Acute Post-Operative Pain, Analgesia, Requested by Surgeon Sedation Type: Sedate with meaningful contact maintained Preparation: Sterile Prep Position: Sitting Catheter Depth at Skin (cm): 10 Catheter: Indwelling Needle Guage: 18 Injectate: Test dose 3ml of 1.5% lidocaine with epi. Negative S/S Blood Aspirated: No Pain Paresthesia on Injection Noted: No Events: Uneventful and Well Tolerated
[2023-05-06] MEDS ORDERED: KETAMINE HCL IN 0.9 % NACL 50 MG/5 ML SYRINGE ONE (14:42)
[2023-05-06] MEDS ORDERED: PHENYLEPHRINE-0.9% NACL SYG 1,000 MCG/10 ML SYRINGE ONE (14:42)
[2023-05-06] MEDS ORDERED: MIDAZOLAM 2 MG/2 ML VIAL ONE (14:42)
[2023-05-06] MEDS ORDERED: ALBUMIN HUMAN 5% (12.5gm) 250 ML BOTTLE IVPB ONE (14:42)
[2023-05-06] MEDS ORDERED: ePHEDrine 50 MG/ML 1 ML VIAL ONE (14:42)
[2023-05-06] MEDS ORDERED: ROCURONIUM 10 MG/ML (5 ML VIAL) IV ONE (14:42)
[2023-05-06] MEDS ORDERED: SUCCINYLCHOLINE CHLORIDE 200 MG/10 ML VIAL IV ONE (14:42)
[2023-05-06] MEDS ORDERED: LIDOCAINE 1% INJ 10MG/ML (20 ML MDV) ONE (14:42)
[2023-05-06] MEDS ORDERED: HYDROmorphone (PF) 1 MG/ML ONE (14:42)
[2023-05-06] MEDS ORDERED: fentaNYL (PF) 50 MCG/ML 2 ML AMP ONE (14:42)
[2023-05-06] MEDS ORDERED: NEOSTIGMINE 1 MG/ML 10 ML VIAL ONE (14:42)
[2023-05-06] MEDS ORDERED: PROPOFOL 10 MG/ML 20 ML VIAL IV ONE (14:42)
[2023-05-06] MEDS ORDERED: GLYCOPYRROLATE 0.2 MG/ML 2 ML VIAL ONE (14:42)
[2023-05-06] MEDS ORDERED: LIDOCAINE 0.5%-EPI 1:200,000 50 ML VIAL SQ ONE (15:44)
[2023-05-06] MEDS ORDERED: LACTATED RINGERS 1,000 ML IV ONE ×3 (17:22→18:13)
[2023-05-06] MEDS ORDERED: BENZOCAINE/MENTHOL LOZENG 1 EACH LOZENGE MUCOUS MEM PRN (20:23)
[2023-05-06] MEDS ORDERED: METOCLOPRAMIDE 5 MG/ML 2 ML VIAL IVP PRN (20:23)
[2023-05-06] MEDS ORDERED: SODIUM CHLORIDE 0.9% 2,000 ML IV ONE (20:33)
[2023-05-06] MEDS ORDERED: ALBUTEROL NEBULIZED 2.5 MG/3 ML INHALATION ONE (20:50)
[2023-05-06] MEDS ORDERED: METOPROLOL TARTRATE 5 MG/5 ML VIAL IVP ONE (20:50)
[2023-05-06] MEDS ORDERED: SCOPOLAMINE 1 MG/72 HR PATCH TRANSDERM ONE (21:00)
[2023-05-06] MEDS ORDERED: ONDANSETRON 4 MG/2 ML VIAL IVP ONE (21:00)
--- NOTE | 2023-05-06 21:08 | P.OP ---
Date of Procedure: 05/06/23 Description of Procedure: SURGEON: RUSSELL DUNBAR MD PREOPERATIVE DIAGNOSES: 1. Recurrent acute on chronic diverticulitis 2. Morbid obesity due to excess calories, BMI 40.2 3. Gastroesophageal reflux disease 4. Hyperlipidemia POSTOPERATIVE DIAGNOSES: 1. Recurrent acute on chronic diverticulitis 2. Morbid obesity due to excess calories, BMI 40.2 3. Gastroesophageal reflux disease 4. Hyperlipidemia 5. Severe pelvic adhesions OPERATION: 1. Robotic-assisted daVinci Xi sigmoid colectomy with low anterior resection using 29 mm Ethicon powered stapler 2. Robotic-assisted daVinci Xi extensive lysis of adhesions over 2 hours 3. Robotic-assisted daVinci Xi mobilization of splenic flexure 4. Intraoperative colonoscopy used for sigmoidoscopy Anesthesia: GETA, local, regional Estimated Blood Loss (ml): 100 Pathology: 1. Sigmoid colon 2. EEA donuts 3. Proximal colotomy Condition: stable Disposition: floor COMPLICATIONS: None. Operative Findings: 1. Acute sigmoid diverticulitis with dense phlegmon left pelvis, sigmoid colon adherent to a loose 2. Anastomosis with EEA stapler 29 mm 3. No torsion along the anastomosis 4. Doughnuts thick and both sides and viable 5. Negative leak test with viable anastomosis. 6. Dense fibrosis and phlegmon left lower quadrant requiring over 2 hours lysis of adhesions. INDICATIONS: The patient is a 47-year-old male who acute on chronic diverticulitis in left lower quadrant abdominal pain. Benefits and risks of surgical intervention was described in detail including infection, injury to the ureter, colostomy creation, possibility for additional surgery was discussed at length. Informed consent was obtained. All questions of the patient and family were answered. DESCRIPTION: Earlier the patient had undergone a bowel prep using the enhanced colon recovery program. The patient was transferred to the operating room and placed supine. After general induction, the abdomen was prepped and draped in standard sterile fashion. Ioban was placed along the abdomen to minimize any contamination of skin floor. A Singh catheter was placed. After a timeout protocol was performed, attention was then brought to the left upper quadrant whereby a 0 degree 5 mm laparoscopic trocar entry was performed. The abdominal cavity was entered and insufflated to 15 mmHg pressure, which was tolerated well. Diagnostic laparoscopy confirmed moderately redundant sigmoid colon and active sigmoid volvulus. The small bowel was unremarkable. Next a robotic 12-mm trocar was placed along the right lateral abdominal wall 20 cm superior from the pelvis. Two 8 mm ports were placed along the upper abdomen. Ports were placed 10 cm apart from each other including 20 cm away from the target anatomy of the left pelvis. The 12-mm port was exchanged for an 8 mm robotic port at the left upper quadrant. The robot was docked along the left lateral abdomen. The patient was positioned in steep Trendelenburg position at 21-degrees. Using atraumatic graspers and vessel sealer, the robotic system was docked and primed as described. Instruments were interchanged by the assistant scientist including hook cautery, needle mixer driver, robotic stapler and vessel sealer. The robot stapler was prepared along the right lateral abdominal wall. The stapler 12-mm port was arranged along the right lateral abdominal wall. Next, attention was brought to identify the sigmoid colon. A stay suture using 3- 0 silk was placed along the anterior serosa of the redundant sigmoid colon. The sigmoid colon was densely adherent to the left pelvis and abdominal wall with acute diverticulitis identified. Moderate calcification and dense inflammation was found with careful dissection using hook cautery, vessel sealer and blunt dissection to remove sigmoid colon from the abdominal wall and pelvis. Extensive lysis adhesions over 2 hours was performed. The sigmoid mesentery was mobilized using a vessel sealer whereby the descending colon was marked and tagged. Using multiple fires of the robot stapler 60 mm black load, the proximal sigmoid colon was divided. The mesentery of the sigmoid colon was mobilized towards the pelvic brim and sacral promontory using a vessel sealer. The sigmoid volvulus was reduced with viable colon. Next, the sigmoid colon was divided using the robotic stapler 60 mm black staple loads. The rest of the sigmoid colon mesentery was mobilized using vessel sealer. Additionally, the sigmoid colon was mobilized onto the colon to minimize injury to the ureters. The length of the descending colon was short requiring repositioning of the patient in reverse Trendelenburg 7 and 7 right tilt including redocking the robot. The descending colon was mobilized along the white line of Toldt with mobilization of splenic flexure using blunt dissection and vessel sealer. The mesentery of the descending colon was mobilized toward the midline and dissected away from the retroperitoneum. Once the sigmoid colon was mobilized towards the midline without injury to the spleen, the patient was repositioned for pelvic with redocking of the robot. I went to the foot of the bed to confirm sizers and placement of 29-mm Ethicon powered stapler. I re-scrubbed into the case. The robotic arms were temporarily undocked. A 29-mm anvil was placed with a 3-0 silk sutured at the tip of the anvil program director/traffic director. Then the anvil was placed via the left upper quadrant 12 mm port. All robotic arms were re-docked. I went back to the console. The staple line was opened using cautery. The anvil was entered into the proximal descending colon. The colotomy was closed using 60 mm green load. Next, the sharp tip of the anvil program director/traffic director was brought through the staple line. The anvil program director/traffic director was removed from the abdomen using empty clip appliers. I went to the foot of the bed to place the powered Ethicon 29 mm stapler via the rectum. The anvil and stapler were mated for 1 minute. The doughnuts were intact on both sides and thick. An intraoperative leak test was performed as I inserted the colonoscope to the anastomosis. Endoscopic images were obtained. Irrigation was placed in the pelvis and no air leaks were identified. Irrigation fluid was aspirated from the pelvis until dry. I went back to the console. All sponges and needles were removed from the abdominal cavity. The robot was undocked. I re-scrubbed into the case. Via the left upper quadrant port, the sigmoid colon was removed using 15 mm Endo Catch bag. All sponges were removed from the abdominal cavity. The left upper quadrant incision was widened to 3-cm. No contamination had occurred throughout the case. The fascial defect was oversewn using 0 Vicryl and a Ravinder Ray. Next all pneumoperitoneum was evacuated from the abdominal cavity. The 8-mm trocar sites were reapproximated using 4-0 Monocryl in an interrupted subcuticular fashion. Local anesthetic was infiltrated to all wounds for postop analgesia. All incisions were also cleansed with diluted hydrogen peroxide. An Optifoam advance surgical dressing was placed over the colon extraction site. Liquid glue was applied to the rest of the skin incisions. The patient had tolerated the procedure well. The patient was extubated successfully. The patient was transferred to the postanesthesia care unit in stable condition. Intraoperative findings were described in detail to the patient's family. Increased complexity of the case due to active phlegmon and pelvic adhesions req uiring over 2-1/2 hours of extensive lysis of adhesions.
[2023-05-06] MEDS: SODIUM CHLORIDE 0.9% 1,000 ML IV SCH (22:11)
[2023-05-06] MEDS: HEPARIN SODIUM,PORCINE 5,000 UNIT/ML 1 ML VIAL SQ SCH (22:11)
[2023-05-06] MEDS: metroNIDAZOLE-NS PMX 500 MG in SALINE 1 100ML.BAG IVPB SCH (22:52)
[2023-05-06] MEDS: ACETAMINOPHEN TAB 500 MG TAB PO SCH (22:57)
[2023-05-06] MEDS: SIMETHICONE 80 MG CHEWABLE PO SCH (22:57)
[2023-05-07] MEDS: ceFAZolin 3 GM in SODIUM CHLORIDE 0.9% 100 ML IVPB SCH ×3 (01:21→17:24)
[2023-05-07] MEDS: ONDANSETRON 4 MG/2 ML VIAL IVP SCH ×4 (01:21→18:15)
[2023-05-07] MEDS: ACETAMINOPHEN TAB 500 MG TAB PO SCH ×4 (02:36→19:54)
[2023-05-07] MEDS: metroNIDAZOLE-NS PMX 500 MG in SALINE 1 100ML.BAG IVPB SCH ×4 (02:37→19:56)
[2023-05-07] MEDS: SODIUM CHLORIDE 0.9% 1,000 ML IV SCH ×3 (04:11→17:26)
[2023-05-07] MEDS: PANTOPRAZOLE 40 MG TABLET PO SCH (06:40)
[2023-05-07] MEDS: LACTATED RINGERS 1,000 ML IV SCH (09:03)
[2023-05-07] MEDS: HEPARIN SODIUM,PORCINE 5,000 UNIT/ML 1 ML VIAL SQ SCH ×2 (09:06→19:55)
[2023-05-07] MEDS: ATORVASTATIN 20 MG TAB PO SCH (09:07)
[2023-05-07] MEDS: SIMETHICONE 80 MG CHEWABLE PO SCH ×3 (09:07→19:55)
--- NOTE | 2023-05-07 09:54 | P.PN ---
Progress Note - Text Progress Note Date: 05/07/23 Adequate analgesia. Epidural @8ml/hr. No anesthetic complicatiob.
--- NOTE | 2023-05-07 11:59 | P.PN ---
Subjective Progress Note Date: 05/07/23 No acute events overnight. Patient states that his pain is well controlled with epidural. No nausea or emesis. Denies any bowel movements or flatus. Minimal ambulation since OR. Objective - Vital Signs Vital signs: Vital Signs Temp 98.1 F 05/07/23 08:00 Pulse 90 05/07/23 08:00 Resp 18 05/07/23 08:00 BP 116/65 05/07/23 08:00 Pulse Ox 96 05/07/23 08:00 FiO2 Intake & Output 05/06/23 05/07/23 05/07/23 18:59 06:59 18:59 Intake Total 2600 0 Output Total 1100 Balance 2600 -1100 Weight 134.3 kg 134.3 kg Intake: IV 2600 0 Output: Urine 1000 Estimated Blood Loss 100 Other: Voiding Method Indwelling Catheter # Voids 1 - Exam Gen: AxO, NAD Pulm: non-labored respirations Abd: soft, non-tender, minimally distended, no guarding/rebound/rigidity Incisions: C/D/I, no erythema or fluctuence appreciated [place]: intact producing pale yellow UOP Extrem: no edema seen - Labs CBC & Chem 7: 05/06/23 12:28 05/06/23 12:28 Labs: Abnormal Lab Results - Last 24 Hours (Table) 05/06/23 05/06/23 Range/Units 12:28 12:28 MCV 79.1 L (80.0-100.0) fL Carbon Dioxide 19 L (22-30) mmol/L BUN 7 L (9-20) mg/dL Creatinine 0.56 L (0.66-1.25) mg/dL Assessment and Plan Assessment: Patient is a 47-year-old male who is status post low anterior resection on 05/06 Plan: -Soft diet as tolerated -Wean epidural as tolerated -DC cary once epidural removed -Activity as tolerated encourage out of bed -PRN pain and nausea control -DVT/GI PPx Noah Talbert MD General Surgery
[2023-05-08] MEDS: ONDANSETRON 4 MG/2 ML VIAL IVP SCH ×4 (00:45→18:37)
[2023-05-08] MEDS: SODIUM CHLORIDE 0.9% 1,000 ML IV SCH ×4 (00:46→21:43)
[2023-05-08] MEDS: ceFAZolin 3 GM in SODIUM CHLORIDE 0.9% 100 ML IVPB SCH ×4 (00:50→23:45)
[2023-05-08] MEDS: ACETAMINOPHEN TAB 500 MG TAB PO SCH ×4 (03:09→21:44)
[2023-05-08] MEDS: metroNIDAZOLE-NS PMX 500 MG in SALINE 1 100ML.BAG IVPB SCH ×4 (03:09→21:44)
[2023-05-08] MEDS: PANTOPRAZOLE 40 MG TABLET PO SCH (06:01)
[2023-05-08] MEDS: LACTATED RINGERS 1,000 ML IV SCH (08:28)
[2023-05-08] MEDS: HEPARIN SODIUM,PORCINE 5,000 UNIT/ML 1 ML VIAL SQ SCH ×2 (08:33→21:43)
[2023-05-08] MEDS: SIMETHICONE 80 MG CHEWABLE PO SCH ×3 (08:34→21:44)
[2023-05-08] MEDS: ATORVASTATIN 20 MG TAB PO SCH (08:34)
--- NOTE | 2023-05-08 11:20 | P.PN ---
Progress Note - Text Progress Note Date: 05/08/23 Adequate analgesia Epidural 8ml/hr. No complication.
[2023-05-08] MEDS: KETOROLAC 15 MG/ML 1 ML VIAL IVP PRN ×2 (12:04→18:45)
--- NOTE | 2023-05-08 14:01 | P.PN ---
Subjective Progress Note Date: 05/08/23 Principal diagnosis: Diverticulitis Patient sitting in the chair. States he is having discomfort. Still somewhat bloated. No flatus. Tolerating some diet. Patient asking for epidural and mainly Singh catheter to be removed. He states he is not ready to go home yet however. States he is still having too much pain for discharge. Objective - Vital Signs Vital signs: Vital Signs Temp 98.6 F 05/08/23 07:24 Pulse 88 05/08/23 07:24 Resp 18 05/08/23 07:24 BP 109/62 05/08/23 07:24 Pulse Ox 90 L 05/08/23 07:53 FiO2 Intake & Output 05/07/23 05/08/23 05/08/23 18:59 06:59 18:59 Output Total 1200 2500 Balance -1200 -2500 Output: Urine 1200 2500 Uretheral (Singh) 400 Other: Voiding Method Indwelling Catheter Indwelling Catheter Indwelling Catheter - Exam Abdomen: Soft, mild tenderness, mild distention, incisions clean and dry - Labs CBC & Chem 7: 05/06/23 12:28 05/06/23 12:28 Assessment and Plan (1) Diverticulitis Narrative/Plan: 47-year-old male with diverticulitis. Doing well after robotic sigmoid c olectomy 2 days ago. The patient asking for Singh catheter be to be removed. Continue diet. Remove epidural and Singh. Possible discharge tomorrow. Current Visit: No Status: Acute Code(s): K57.92 - DVTRCLI OF INTEST, PART UNSP, W/O PERF OR ABSCESS W/O BLEED SNOMED Code(s): 883445029
[2023-05-08] MEDS: HYDROmorphone 1 MG/ML 1 ML SYRINGE IVP PRN (16:08)
[2023-05-09] MEDS: ONDANSETRON 4 MG/2 ML VIAL IVP SCH ×4 (00:37→17:14)
[2023-05-09] MEDS: metroNIDAZOLE-NS PMX 500 MG in SALINE 1 100ML.BAG IVPB SCH ×4 (03:27→20:16)
[2023-05-09] MEDS: ACETAMINOPHEN TAB 500 MG TAB PO SCH ×5 (03:27→22:16)
[2023-05-09] MEDS: SODIUM CHLORIDE 0.9% 1,000 ML IV SCH ×4 (03:30→22:17)
[2023-05-09] MEDS: PANTOPRAZOLE 40 MG TABLET PO SCH (06:11)
[2023-05-09] MEDS: SIMETHICONE 80 MG CHEWABLE PO SCH ×3 (08:59→20:16)
[2023-05-09] MEDS: ATORVASTATIN 20 MG TAB PO SCH (09:04)
[2023-05-09] MEDS: HEPARIN SODIUM,PORCINE 5,000 UNIT/ML 1 ML VIAL SQ SCH ×2 (09:04→20:16)
[2023-05-09] MEDS: ceFAZolin 3 GM in SODIUM CHLORIDE 0.9% 100 ML IVPB SCH ×2 (10:05→17:15)
[2023-05-09 10:34] LABS: Basophils # (A) 0.03 X 10*3/uL (0.00-0.10); Basophils % (A) 0.3 %; Eosinophils # (A) 0.52 X 10*3/uL (0.04-0.35); Eosinophils % (A) 4.8 %; HCT 39.5 % (39.6-50.0); HGB 12.5 g/dL (13.0-17.0); Lymphocytes # (A) 1.99 X 10*3/uL (0.90-5.00); Lymphocytes % (A) 18.5 %; MCH 25.8 pg (27.0-32.0); MCHC 31.6 g/dL (32.0-37.0); MCV 81.4 FL (80.0-97.0); Mean Platelet Volume 10.4 FL (9.5-12.2); Monocytes # (A) 0.91 X 10*3/uL (0.20-1.00); Monocytes % (A) 8.4 %; NRBC Per 100 WBC 0 X 10*3/uL (0.00-0.01); Neutrophils # (A) 7.29 X 10*3/uL (1.80-7.70); Neutrophils % (A) 67.7 %; Platelet Count 237 X 10*3/uL (140-440); RBC 4.85 X 10*6/uL (4.40-5.60); RDW 14.5 % (11.5-14.5); WBC 10.77 X 10*3/uL (4.50-10.00)
[2023-05-09] MEDS: LACTATED RINGERS 1,000 ML IV SCH (10:54)
[2023-05-09] MEDS: HYDROmorphone 1 MG/ML 1 ML SYRINGE IVP PRN ×2 (11:22→17:11)
--- NOTE | 2023-05-09 12:49 | P.PN ---
Subjective Progress Note Date: 05/09/23 Principal diagnosis: Diverticulitis Patient is better today. Having the Singh out helped. He is tolerating a regular diet today. Still having abdominal discomfort especially with movement. States he still needs IV narcotics in the form of Dilaudid. States he is not ready to go home yet. Had a bowel movement with small amount of blood. Vital stable Objective - Vital Signs Vital signs: Vital Signs Temp 98.5 F 05/09/23 08:00 Pulse 75 05/09/23 08:00 Resp 18 05/09/23 08:00 BP 150/90 05/09/23 08:00 Pulse Ox 94 L 05/09/23 08:00 FiO2 Intake & Output 05/08/23 05/09/23 05/09/23 18:59 06:59 18:59 Other: Voiding Method Indwelling Catheter Toilet Toilet # Voids 1 - Exam Abdomen: Soft, mild distention, mild tenderness at incision sites - Labs CBC & Chem 7: 05/09/23 04:43 05/06/23 12:28 Labs: Abnormal Lab Results - Last 24 Hours (Table) 05/09/23 Range/Units 04:43 WBC 10.77 H (4.50-10.00) X 10*3/uL Hgb 12.5 L (13.0-17.0) g/dL Hct 39.5 L (39.6-50.0) % MCH 25.8 L (27.0-32.0) pg MCHC 31.6 L (32.0-37.0) g/dL Eosinophils # 0.52 H (0.04-0.35) X 10*3/uL Assessment and Plan (1) Diverticulitis Narrative/Plan: Patient doing much better than yesterday. We discussed going home. He states he is not ready to go home yet. Continue analgesics. Increase activity. Anticipate discharge tomorrow. Current Visit: No Status: Acute Code(s): K57.92 - DVTRCLI OF INTEST, PART UNSP, W/O PERF OR ABSCESS W/O BLEED SNOMED Code(s): 169802125
[2023-05-10] MEDS: ceFAZolin 3 GM in SODIUM CHLORIDE 0.9% 100 ML IVPB SCH ×2 (00:12→09:37)
[2023-05-10] MEDS: ONDANSETRON 4 MG/2 ML VIAL IVP SCH ×3 (00:37→09:13)
[2023-05-10] MEDS: ACETAMINOPHEN TAB 500 MG TAB PO SCH ×2 (02:18→09:46)
[2023-05-10] MEDS: metroNIDAZOLE-NS PMX 500 MG in SALINE 1 100ML.BAG IVPB SCH ×2 (03:30→09:37)
[2023-05-10] MEDS: SODIUM CHLORIDE 0.9% 1,000 ML IV SCH (05:50)
[2023-05-10] MEDS: LACTATED RINGERS 1,000 ML IV SCH (05:52)
[2023-05-10] MEDS: PANTOPRAZOLE 40 MG TABLET PO SCH (06:14)
[2023-05-10 08:37] VITALS: BP 144/90; PULSE 75; RESP 18; TEMP 98
--- NOTE | 2023-05-10 09:25 | P.PN ---
Subjective Progress Note Date: 05/10/23 Had bowel movement at time of assessment no blood. Pain expected from LUQ incision. Otherwise stable for discharge. Home with antibiotics due to complicated diverticulitis. Objective - Vital Signs Vital signs: Vital Signs Temp 98 F 05/10/23 06:57 Pulse 75 05/10/23 06:57 Resp 18 05/10/23 06:57 BP 144/90 05/10/23 06:57 Pulse Ox 96 05/10/23 08:42 FiO2 Intake & Output 05/09/23 05/10/23 05/10/23 18:59 06:59 18:59 Intake Total 1800 Balance 1800 Intake: IV 1800 Sodium Chloride 0.9% 1, 1800 000 ml @ 150 mls/hr IV . Q6H40M [facility] Rx#:[id number] Other: Voiding Method Toilet # Voids 2 - Labs CBC & Chem 7: 05/09/23 04:43 05/06/23 12:28 Labs: Abnormal Lab Results - Last 24 Hours (Table) 05/09/23 Range/Units 04:43 WBC 10.77 H (4.50-10.00) X 10*3/uL Hgb 12.5 L (13.0-17.0) g/dL Hct 39.5 L (39.6-50.0) % MCH 25.8 L (27.0-32.0) pg MCHC 31.6 L (32.0-37.0) g/dL Eosinophils # 0.52 H (0.04-0.35) X 10*3/uL
[2023-05-10] MEDS: HEPARIN SODIUM,PORCINE 5,000 UNIT/ML 1 ML VIAL SQ SCH (09:41)
[2023-05-10] MEDS: ATORVASTATIN 20 MG TAB PO SCH (09:41)
[2023-05-10] MEDS: SIMETHICONE 80 MG CHEWABLE PO SCH (09:42)
== END 2023-05-10 10:31 | disposition home or self-care (01) | DRG 329 ==
LOC: 2ORMAIN 11:53 → 4SSUR 20:24
PROVIDERS: ADMIT Surgery Plastic and Reconstructive Surgery; ATTEND Surgery Plastic and Reconstructive Surgery
PROC: 0DNW4ZZ Release Peritoneum, Percutaneous Endoscopic Approach (ICD-10-PCS; 2023-05-06)
PROC: 8E0W4CZ Robotic Assisted Procedure of Trunk Region, Percutaneous Endoscopic Approach (ICD-10-PCS; 2023-05-06)
PROC: 0DJD8ZZ Inspection of Lower Intestinal Tract, Via Natural or Artificial Opening Endoscopic (ICD-10-PCS; 2023-05-06)
PROC: 0DTN4ZZ Resection of Sigmoid Colon, Percutaneous Endoscopic Approach (ICD-10-PCS; principal; 2023-05-06 15:30)
DX: K57.20 Diverticulitis of large intestine with perforation and abscess without bleeding (principal); K56.2 Volvulus; Z68.41 Body mass index [BMI] 40.0-44.9, adult; E66.01 Morbid (severe) obesity due to excess calories; E78.5 Hyperlipidemia, unspecified; K21.9 Gastro-esophageal reflux disease without esophagitis; Z77.090 Contact with and (suspected) exposure to asbestos; K66.0 Peritoneal adhesions (postprocedural) (postinfection); M19.90 Unspecified osteoarthritis, unspecified site; Z82.49 Family history of ischemic heart disease and other diseases of the circulatory system; Z79.899 Other long term (current) drug therapy; Z88.5 Allergy status to narcotic agent; Z88.2 Allergy status to sulfonamides; Z90.49 Acquired absence of other specified parts of digestive tract
CPT/HCPCS: 80053; 85025; 88307; 94760

== ENCOUNTER 2023-06-06 11:48 | Emergency (ER) | payer OTHER ==
--- NOTE | 2023-06-06 13:19 | ED ---
Abdominal Pain HPI - General Chief Complaint: Abdominal Pain Stated Complaint: abd pain Time Seen by Provider: 06/06/23 12:49 Source: patient, RN notes reviewed Mode of arrival: ambulatory Limitations: no limitations - History of Present Illness Initial Comments: 47-year-old male presents emergency department with chief complaint left-sided abdominal pain. Patient states that he had a colon resection [address] Corrales in which he states he was doing well up until last week he has developed increasing pain. He states pain with movement on his left side. He denies any change in bowel habits denies any dysuria hematuria nausea vomiting. Patient states his surgeon is out of town and as the pain is worsening presented to the emergency department. - Related Data Home Medications Medication Instructions Recorded Confirmed Pantoprazole Sodium [Protonix] 40 mg PO QAM 06/04/18 05/06/23 [place]-3/Dha/Epa/Fish Oil [Fish Oil 1 cap PO DAILY 08/10/22 05/06/23 1,000 mg Softgel] Rosuvastatin [Crestor] 10 mg PO DAILY 08/10/22 05/06/23 Previous Rx's Medication Instructions Recorded Acetaminophen Tab [Tylenol Tab] 1,000 mg PO Q6HR PRN #30 tablet 05/06/23 Cyclobenzaprine [Flexeril] 10 mg PO TID #30 tab 05/06/23 Ibuprofen [Motrin] 600 mg PO Q8HR PRN #30 tab 05/06/23 Simethicone [Gas-X] 125 mg PO AC-TID PRN #20 capsule 05/06/23 Ciprofloxacin HCl [Cipro] 500 mg PO Q12HR #14 tablet 05/10/23 metroNIDAZOLE [Flagyl] 500 mg PO TID #30 tab 05/10/23 Allergies Allergy/AdvReac Type Severity Reaction Status Date / Time morphine Allergy Chest Pain Verified 06/06/23 11:52 Sulfa (Sulfonamide Allergy Rapid Verified 06/06/23 11:52 Antibiotics) Heart Rate, Rash, Increased temperatures sulfamethoxazole Allergy Rapid Verified 06/06/23 11:52 [From Bactrim] Heart Rate, Rash, Increased temperatures trimethoprim [From Bactrim] Allergy Rapid Verified 06/06/23 11:52 Heart Rate, Rash, Increased temperatures Review of Systems ROS Statement: Those systems with pertinent positive or pertinent negative responses have been documented in the HPI. ROS Other: All systems not noted in ROS Statement are negative. Past Medical History Past Medical History: GERD/Reflux, Hyperlipidemia, Osteoarthritis (OA) Additional Past Medical History / Comment(s): Works in construction, Asbestos exposure, Diverticulitis History of Any Multi-Drug Resistant Organisms: None Reported Past Surgical History: Back Surgery, Cholecystectomy Additional Past Surgical History / Comment(s): partial thyroidrectomy (lump ended up benign)colonoscopy Past Anesthesia/Blood Transfusion Reactions: No Reported Reaction, Postoperative Nausea & Vomiting (PONV) Additional Past Anesthesia/Blood Transfusion Reaction / Comment(s): no blood transfusion Past Psychological History: No Psychological Hx Reported Smoking Status: Never smoker Past Alcohol Use History: Occasional Past Drug Use History: None Reported - Past Family History Father Family Medical History: Hypertension Mother Additional Family Medical History / Comment(s): DIVERTICULITIS General Exam Limitations: no limitations General appearance: alert, in no apparent distress Head exam: Present: atraumatic, normocephalic, normal inspection Respiratory exam: Present: normal lung sounds bilaterally. Absent: respiratory distress, wheezes, rales, rhonchi, stridor Cardiovascular Exam: Present: regular rate, normal rhythm, normal heart sounds. Absent: systolic murmur, diastolic murmur, rubs, gallop, clicks GI/Abdominal exam: Present: soft, tenderness (Minimal left-sided), normal bowel sounds. Absent: distended, guarding, rebound, rigid Back exam: Absent: CVA tenderness (R), CVA tenderness (L) Neurological exam: Present: alert Skin exam: Present: warm, dry, intact, normal color. Absent: rash Course Vital Signs 06/06/23 06/06/23 11:50 15:10 Temperature 98.4 F 99.5 F Pulse Rate 71 72 Respiratory 20 18 Rate Blood Pressure 166/100 142/91 O2 Sat by Pulse 99 99 Oximetry Medical Decision Making - Medical Decision Making Was pt. sent in by a medical professional or institution (, PA, DRYWALL TAPER HELPER, urgent care, hospital, or jail...) When possible be specific @ -[Surgeon Did you speak to anyone other than the patient for history (EMS, parent, family, police, friend...)? What history was obtained from this source @ -No Did you review nursing and triage notes (agree or disagree)? Why? @ -I reviewed and agree with nursing and triage notes Were old charts reviewed (outside hosp., previous admission, EMS record, old EKG, old radiological studies, urgent care reports/EKG's, jail records)? Report findings @ -[Prior laboratory studies, imaging Differential Diagnosis (chest pain, altered mental status, abdominal pain women, abdominal pain men, vaginal bleeding, weakness, fever, dyspnea, syncope, headache, dizziness, GI bleed, back pain, seizure, CVA, palpatations, mental health, musculoskeletal)? @ -Differential Abdominal Pain Men: Appendicitis, cholecystitis, diverticulosis, ischemic bowel, pancreatitis, hepatitis, UTI, gastroenteritis, AAA, incarcerated hernia, bowel obstruction, constipation, inflammatory bowel, hepatitis, peptic ulcer disease, splenic infarction, perforated viscus, testicular torsion, this is not meant to be an all-inclusive list EKG interpreted by me (3pts min.). @ -As above X-rays interpreted by me (1pt min.). @ -None done CT interpreted by me (1pt min.). @ -[CT of the abdomen pelvis shows postsurgical changes no fluid collections no abscess U/S interpreted by me (1pt. min.). @ -None done What testing was considered but not performed or refused? (CT, X-rays, U/S, labs)? Why? @ -None What meds were considered but not given or refused? Why? @ -None Did you discuss the management of the patient with other professionals (professionals i.e. , PA, DRYWALL TAPER HELPER, lab, RT, psych nurse, social worker psychiatric, puppy walker, teacher, biosecurity officer, returned case inspector)? Give summary @ -No Was smoking cessation discussed for >3mins.? @ -No Was critical care preformed (if so, how long)? @ -No Were there social determinants of health that impacted care today? How? (Homel essness, low income, unemployed, alcoholism, drug addiction, transportation, low edu. Level, literacy, decrease access to med. care, care home, rehab)? @ -No Was there de-escalation of care discussed even if they declined (Discuss DNR or withdrawal of care, Hospice)? DNR status @ -No What co-morbidities impacted this encounter? (DM, HTN, Smoking, COPD, CAD, Cancer, CVA, ARF, Chemo, Hep., AIDS, mental health diagnosis, sleep apnea, morbid obesity)? @ -None Was patient admitted / discharged? Hospital course, mention meds given and route, prescriptions, significant lab abnormalities, going to OR and other pertinent info. @ -[Discharged patient laboratory studies, CT was unremarkable patient has post surgical pain will follow-up with surgeon return precaution discussed. Undiagnosed new problem with uncertain prognosis? @ -No Drug Therapy requiring intensive monitoring for toxicity (Heparin, Nitro, Insulin, Cardizem)? @ -No Were any procedures done? @ -No Diagnosis/symptom? @ -[Abdominal pain Acute, or Chronic, or Acute on Chronic? @ -Acute Uncomplicated (without systemic symptoms) or Complicated (systemic symptoms)? @ -[Uncomplicated Side effects of treatment? @ -[No Exacerbation, Progression, or Severe Exacerbation? @ -No Poses a threat to life or bodily function? How? (Chest pain, [place], [place], pneumonia, PE, COPD, DKA, ARF, appy, cholecystitis, CVA, Diverticulitis, Homicidal, Suicidal, threat to staff... and all critical care pts) @ -No - Lab Data Result diagrams: 06/06/23 13:05 06/06/23 13:05 Lab Results 06/06/23 06/06/23 06/06/23 Range/Units 13:05 13:05 13:05 WBC 8.1 (3.8-10.6) k/uL RBC 5.51 (4.30-5.90) m/uL Hgb 14.6 (13.0-17.5) gm/dL Hct 43.9 (39.0-53.0) % MCV 79.7 L (80.0-100.0) fL MCH 26.5 (25.0-35.0) pg MCHC 33.2 (31.0-37.0) g/dL RDW 14.0 (11.5-15.5) % Plt Count 225 (150-450) k/uL MPV 8.4 Neutrophils % 54 % Lymphocytes % 25 % Monocytes % 8 % Eosinophils % 11 % Basophils % 0 % Neutrophils # 4.4 (1.3-7.7) k/uL Lymphocytes # 2.0 (1.0-4.8) k/uL Monocytes # 0.6 (0-1.0) k/uL Eosinophils # 0.9 H (0-0.7) k/uL Basophils # 0.0 (0-0.2) k/uL Sodium 141 (137-145) mmol/L Potassium 4.7 (3.5-5.1) mmol/L Chloride 103 (98-107) mmol/L Carbon Dioxide 26 (22-30) mmol/L Anion Gap 12 mmol/L BUN 13 (9-20) mg/dL Creatinine 0.64 L (0.66-1.25) mg/dL Est GFR (CKD-EPI)AfAm >90 (>60 ml/min/1.73 sqM) Est GFR (CKD-EPI)NonAf >90 (>60 ml/min/1.73 sqM) Glucose 89 (74-99) mg/dL Plasma Lactic Acid Joo 1.1 (0.7-2.0) mmol/L Calcium 9.6 (8.4-10.2) mg/dL Total Bilirubin 0.5 (0.2-1.3) mg/dL AST 29 (17-59) U/L ALT 37 (4-49) U/L Alkaline Phosphatase 76 (38-126) U/L Total Protein 8.1 (6.3-8.2) g/dL Albumin 4.5 (3.5-5.0) g/dL Amylase 70 (30-110) U/L Lipase 85 (23-300) U/L Disposition Clinical Impression: Abdominal pain Disposition: HOME SELF-CARE Condition: Stable Instructions (If sedation given, give patient instructions): Abdominal Pain (ED) Additional Instructions: Please return to the Emergency Department if symptoms worsen or any other concerns. Is patient prescribed a controlled substance at d/c from ED?: No Referrals: Olivia Langley MD [Primary Care Provider] - 1-2 days Time of Disposition: 14:49
[2023-06-06 13:44] LABS: Basophils % (A) 0 %; Eosinophils # (A) 0.9 k/uL (0-0.7); Eosinophils % (A) 11 %; HCT 43.9 % (39.0-53.0); HGB 14.6 gm/dL (13.0-17.5); Lymphocytes % (A) 25 %; MCH 26.5 pg (25.0-35.0); MCHC 33.2 g/dL (31.0-37.0); MCV 79.7 fL (80.0-100.0); Mean Platelet Volume 8.4; Monocytes # (A) 0.6 k/uL (0-1.0); Monocytes % (A) 8 %; Neutrophils # (A) 4.4 k/uL (1.3-7.7); Neutrophils % (A) 54 %; Platelet Count 225 k/uL (150-450); RBC 5.51 m/uL (4.30-5.90); WBC 8.1 k/uL (3.8-10.6)
[2023-06-06 13:52] LABS: ALT 37 U/L (4-49); AST 29 U/L (17-59); African American GFR (CKD) >90 (>60 ml/min/1.73 sqM); Albumin 4.5 g/dL (3.5-5.0); Alkaline Phosphatase 76 U/L (38-126); Amylase 70 U/L (30-110); Anion Gap 12 mmol/L; Blood Urea Nitrogen 13 mg/dL (9-20); Calcium 9.6 mg/dL (8.4-10.2); Carbon Dioxide 26 mmol/L (22-30); Chloride 103 mmol/L (98-107); Glucose 89 mg/dL (74-99); Lipase 85 U/L (23-300); Non-African American GFR(CKD) >90 (>60 ml/min/1.73 sqM); Potassium 4.7 mmol/L (3.5-5.1); Sodium 141 mmol/L (137-145); Total Bilirubin 0.5 mg/dL (0.2-1.3); Total Protein 8.1 g/dL (6.3-8.2)
--- NOTE | 2023-06-06 14:40 | CT ---
EXAMINATION TYPE: CT abdomen pelvis w con DATE OF EXAM: 06/06/2023 COMPARISON: 12/15/2022 INDICATION: abdominal pain x1 month. HX OF COLON SX 1 MONTH AGO DLP: 2769.4 mGycm, Automated exposure control for dose reduction was used. CONTRAST: 100ML mL of Isovue 300. Study performed without Oral Contrast TECHNIQUE: Axial images were obtained from above the diaphragm to the pubic rami in the axial plane a t 5 mm thick sections. Reconstructed images are reviewed on the computer in the coronal plane. FINDINGS: Limited CT sections are obtained the lung bases. The lung bases are clear. CT ABDOMEN: Liver: There is mild fatty liver. Spleen: Normal Pancreas: Normal Adrenal glands: The adrenal glands are normal. Gallbladder: Surgically absent Kidneys: No masses are evident. No hydronephrosis is present. Couple small cortical renal cysts are better visualized on the delayed images. Delayed images were obtained through the kidneys, which re main unremarkable. Aorta: None Inferior vena cava: Normal. CT PELVIS: Loops of bowel within the abdomen and pelvis are normal. Postsurgical changes are within the sigmoid colon. There are loops of bowel which are incompletely distended or lack oral contrast limiting th eir evaluation. Appendix: Not well visualized. No inflammatory changes or dilated tubular structures are identified. Urinary bladder: Normal. Genitourinary structures: Osseous structures: No suspicious lytic or sclerotic lesions. Facet degenerative changes are within t he lumbar spine IMPRESSION: 1. No acute radiographic abnormality.
[2023-06-06 15:17] VITALS: BP 142/91; PULSE 72; RESP 18; TEMP 99.5
== END 2023-06-06 15:10 | disposition home or self-care (01) ==
LOC: EC 11:48
DX: R10.9 Unspecified abdominal pain (principal); E78.5 Hyperlipidemia, unspecified; K21.9 Gastro-esophageal reflux disease without esophagitis; M19.90 Unspecified osteoarthritis, unspecified site; Z79.899 Other long term (current) drug therapy; Z88.2 Allergy status to sulfonamides; Z88.5 Allergy status to narcotic agent; Z88.8 Allergy status to other drugs, medicaments and biological substances
CPT/HCPCS: 36415; 80053; 82150; 83605; 83690; 85025; 74177; 99284; Q9967

== ENCOUNTER → 2023-10-14 | Outpatient (CLI) | payer OTHER ==
[2023-10-14 16:55] LABS: Basophils # (A) 0.05 X 10*3/uL (0.00-0.10); Basophils % (A) 0.7 %; Eosinophils # (A) 0.44 X 10*3/uL (0.04-0.35); HCT 46.3 % (39.6-50.0); HGB 14.6 g/dL (13.0-17.0); Lymphocytes # (A) 2.56 X 10*3/uL (0.90-5.00); Lymphocytes % (A) 34.8 %; MCH 25.7 pg (27.0-32.0); MCHC 31.5 g/dL (32.0-37.0); MCV 81.4 FL (80.0-97.0); Mean Platelet Volume 10.8 FL (9.5-12.2); Monocytes # (A) 0.55 X 10*3/uL (0.20-1.00); Monocytes % (A) 7.5 %; NRBC Per 100 WBC 0 X 10*3/uL (0.00-0.01); Neutrophils # (A) 3.74 X 10*3/uL (1.80-7.70); Neutrophils % (A) 50.9 %; Platelet Count 236 X 10*3/uL (140-440); RBC 5.69 X 10*6/uL (4.40-5.60); RDW 14.1 % (11.5-14.5); WBC 7.35 X 10*3/uL (4.50-10.00)
[2023-10-14 18:18] LABS: ALT 54 U/L (10-49); AST 45 U/L (14-35); Albumin 4.4 g/dL (3.8-4.9); Albumin/Globulin Ratio 1.42 Ratio (1.60-3.17); Alkaline Phosphatase 69 U/L (41-126); BUN/Creat Ratio 13.38 Ratio (12.00-20.00); Blood Urea Nitrogen 10.7 mg/dL (9.0-27.0); Calcium 9.4 mg/dL (8.7-10.3); Carbon Dioxide 25.5 mmol/L (21.6-31.8); Chloride 105 mmol/L (96-109); Chol/HDL Ratio 3.82 Ratio; Globulin 3.1 g/dL (1.6-3.3); Glucose 101 mg/dL (70-110); LDL Cholesterol,Calculated 62.8 mg/dL (0.0-131.0); Potassium 4.9 mmol/L (3.5-5.5); Sodium 142 mmol/L (135-145); Total Bilirubin 0.5 mg/dL (0.3-1.2); Total Protein 7.5 g/dL (6.2-8.2)
== END | disposition home or self-care (01) ==
LOC: LABWHC1 09:46
PROVIDERS: ATTEND Internal Medicine
DX: Z00.01 Encounter for general adult medical examination with abnormal findings (principal); E78.00 Pure hypercholesterolemia, unspecified
CPT/HCPCS: 36415; 80053; 80061; 85025

== ENCOUNTER → 2024-03-28 | Outpatient (CLI) | payer OTHER ==
--- NOTE | 2024-03-29 17:32 | MR ---
EXAMINATION TYPE: MR lumbar spine wo/w con DATE OF EXAM: 03/28/2024 5:36 PM COMPARISON: Multiple CT abdomen and pelvis with most recent 06/06/2023. CLINICAL INDICATION: Male, 48 years old with history of LUMBAR SURGERY LOW BACK PN [id number]; PHH, Low rodri k pain for 2 months, left leg pain TECHNIQUE: Multi planar, multi sequence imaging was performed utilizing: T1-weighted, T2-weighted, a nd turbo inversion recovery imaging of the lumbar spine. IV Contrast: 13 mL Gadavist (None, if empty) FINDINGS: Alignment: The lumbar vertebral bodies have preserved heights and alignment. Cord: The conus medullaris and the distal spinal cord appear unremarkable with regards to their signa l intensity and morphology. Bones/Discs: Mild degeneration changes throughout the spine with osteophyte formation and facet joint arthropathy. Multilevel disc desiccation is present involving L2 through L5. No abnormal inversion r ecovery signal to suggest bony edema. Suggests a postoperative changes of the right L4-L5 interlamina r region. T12-L1: Tiny central disc protrusion without significant effacement of the anterior thecal sac. No ne ural foraminal stenosis. L1-L2: No evidence of significant spinal canal stenosis or neural foraminal stenosis. L2-L3: Central disc protrusion with cranial extrusion resulting in mild to moderate effacement of the anterior thecal sac. Additional left foraminal disc protrusion resulting in mild neural foraminal st enosis. The right neural foramen is patent. Bilateral facet arthropathy. L3-L4: Central disc protrusion resulting in mild to moderate effacement of the anterior thecal sac. S uperimposed upon a broad-based disc bulge. Bilateral facet arthropathy with mild bilateral neural for aminal stenosis. L4-L5: Central disc protrusion without significant effacement of the anterior thecal sac. Bilateral f acet arthropathy. No significant neural foraminal stenosis. L5-S1: The disc has a rounded posterior morphology without significant spinal canal stenosis. Facet j oint arthropathy with mild left neural foraminal stenosis. The right neural foramen is patent. Other findings: None. IMPRESSION: 1. Multilevel disc protrusions at T12-L1, L2-L3, L3-L4 and L4-L5. Largest protrusions are at L2-L3 a nd L3-L4 resulting in mild to moderate central canal stenosis. 2. Mild to moderate multilevel degenerative disc disease and facet arthropathy. [facility], , 03/29/2024 5:29 PM
== END | disposition home or self-care (01) ==
LOC: RADMRIMAIN 16:32
PROVIDERS: ATTEND Physical Medicine & Rehabilitation
DX: S16.1XXD Strain of muscle, fascia and tendon at neck level, subsequent encounter (principal); M43.16 Spondylolisthesis, lumbar region; M41.26 Other idiopathic scoliosis, lumbar region; S33.5XXD Sprain of ligaments of lumbar spine, subsequent encounter
CPT/HCPCS: 72158; A9585

== ENCOUNTER → 2024-05-08 | Outpatient (CLI) | payer OTHER ==
[2024-05-08 10:14] LABS: Basophils # (A) 0.04 X 10*3/uL (0.00-0.10); Basophils % (A) 0.5 %; Eosinophils # (A) 0.26 X 10*3/uL (0.04-0.35); Eosinophils % (A) 3.6 %; HCT 46.1 % (39.6-50.0); HGB 14.6 g/dL (13.0-17.0); Lymphocytes # (A) 2.37 X 10*3/uL (0.90-5.00); Lymphocytes % (A) 32.4 %; MCH 26.2 pg (27.0-32.0); MCHC 31.7 g/dL (32.0-37.0); MCV 82.6 FL (80.0-97.0); Mean Platelet Volume 10.8 FL (9.5-12.2); Monocytes # (A) 0.58 X 10*3/uL (0.20-1.00); Monocytes % (A) 7.9 %; NRBC Per 100 WBC 0 X 10*3/uL (0.00-0.01); Neutrophils # (A) 4.05 X 10*3/uL (1.80-7.70); Neutrophils % (A) 55.3 %; Platelet Count 226 X 10*3/uL (140-440); RBC 5.58 X 10*6/uL (4.40-5.60); RDW 14.5 % (11.5-14.5); WBC 7.32 X 10*3/uL (4.50-10.00)
[2024-05-08 10:42] LABS: ALT 31 U/L (10-49); AST 29 U/L (14-35); Albumin 4.2 g/dL (3.8-4.9); Alkaline Phosphatase 68 U/L (41-126); BUN/Creat Ratio 12.71 Ratio (12.00-20.00); Blood Urea Nitrogen 8.9 mg/dL (9.0-27.0); Calcium 9.2 mg/dL (8.7-10.3); Carbon Dioxide 27.7 mmol/L (21.6-31.8); Chloride 106 mmol/L (96-109); Globulin 2.8 g/dL (1.6-3.3); Glucose 108 mg/dL (70-110); Potassium 4.3 mmol/L (3.5-5.5); Sodium 143 mmol/L (135-145); Total Bilirubin 0.4 mg/dL (0.3-1.2)
== END | disposition home or self-care (01) ==
LOC: LABWHC1 07:38
PROVIDERS: ATTEND Internal Medicine
DX: Z00.01 Encounter for general adult medical examination with abnormal findings (principal); E55.9 Vitamin D deficiency, unspecified; E78.00 Pure hypercholesterolemia, unspecified; R53.83 Other fatigue
CPT/HCPCS: 36415; 80053; 80061; 82306; 84443; 85025

== ENCOUNTER → 2024-10-26 | Outpatient (CLI) | payer OTHER ==
[2024-10-26 10:18] LABS: Basophils # (A) 0.05 X 10*3/uL (0.00-0.10); Basophils % (A) 0.7 %; Eosinophils # (A) 0.36 X 10*3/uL (0.04-0.35); Eosinophils % (A) 4.7 %; Lymphocytes # (A) 2.52 X 10*3/uL (0.90-5.00); Lymphocytes % (A) 32.8 %; MCH 25.6 pg (27.0-32.0); MCHC 31.3 g/dL (32.0-37.0); MCV 81.8 FL (80.0-97.0); Mean Platelet Volume 10.4 FL (9.5-12.2); Monocytes # (A) 0.59 X 10*3/uL (0.20-1.00); Monocytes % (A) 7.7 %; NRBC Per 100 WBC 0 X 10*3/uL (0.00-0.01); Neutrophils # (A) 4.14 X 10*3/uL (1.80-7.70); Neutrophils % (A) 53.8 %; Platelet Count 232 X 10*3/uL (140-440); RBC 5.87 X 10*6/uL (4.40-5.60); RDW 14.2 % (11.5-14.5); WBC 7.68 X 10*3/uL (4.50-10.00)
[2024-10-26 10:42] LABS: ALT 67 U/L (10-49); AST 61 U/L (14-35); Albumin 4.2 g/dL (3.8-4.9); Alkaline Phosphatase 74 U/L (41-126); Blood Urea Nitrogen 8.4 mg/dL (9.0-27.0); Calcium 9.1 mg/dL (8.7-10.3); Carbon Dioxide 25.9 mmol/L (21.6-31.8); Chloride 104 mmol/L (96-109); Glucose 108 mg/dL (70-110); LDL Cholesterol,Calculated 75.6 mg/dL (0.0-131.0); Potassium 4.7 mmol/L (3.5-5.5); Prostate Specific Antigen 0.91 ng/mL (0.000-3.500); Sodium 139 mmol/L (135-145); Total Bilirubin 0.4 mg/dL (0.3-1.2); Total Protein 7.2 g/dL (6.2-8.2)
== END | disposition home or self-care (01) ==
LOC: LABWHC1 08:13
PROVIDERS: ATTEND Internal Medicine
DX: Z00.01 Encounter for general adult medical examination with abnormal findings (principal); Z12.5 Encounter for screening for malignant neoplasm of prostate; E78.00 Pure hypercholesterolemia, unspecified; K76.0 Fatty (change of) liver, not elsewhere classified; E55.9 Vitamin D deficiency, unspecified; K21.9 Gastro-esophageal reflux disease without esophagitis
CPT/HCPCS: 36415; 80053; 80061; 82306; 84153; 85025